=== PATIENT | male | born 1945 | race Caucasian/White ===

== ENCOUNTER 2018-04-17 10:05 | Inpatient (IN) | payer OTHER ==
[2018-04-17] MEDS ORDERED: ACETAMINOPHEN 1000 MG/100 ML VIAL (NON FORMULARY) IVPB ONE (10:57)
[2018-04-17] MEDS ORDERED: SODIUM CHLORIDE 1,000 ML IV STA ×2 (10:57→12:44)
[2018-04-17] MEDS ORDERED: ACETAMINOPHEN INJECTION 100 ML IVPB ONE (11:05)
--- NOTE | 2018-04-17 11:27 | PDOC ---
History of Present Illness - General Chief Complaint: Urinary Problem Stated Complaint: LT SIDE PAIN Time Seen by Provider: 04/17/18 10:33 History Source: Patient Exam Limitations: No Limitations - History of Present Illness Travel History: No Initial Comments: 04/17/18 11:04 72-year-old male presents to ED with complaints of chills since last night associated with lower abdominal pain and urinary frequency to the night. Patient states took nothing for the above and Afeditab CR when his testicular pain worsened and continued which chills. Patient denies diabetes, recent travel recent illness. Patient does see history of prostate stay with the placement years ago. Patient states is followed by urologist in [place] and Dr. Erwin for primary care. Patient denies abdominal distention, recent UTI , diarrhea, back pain, or nausea. Patient denies penile discharge or history of hydrocele/ varicele/hernia. Timing/Duration: reports: constant, getting worse Quality: reports: moderate, throbbing Abdominal Pain Onset Location: reports: suprapubic Pain Radiation: reports: other (left testicle) Activities at Onset: reports: none Aggravating Factors: improves with: Movement Alleviating Factors: improves with: None Past History - Travel Traveled outside of the country in the last 30 days: No - Past Medical History Allergies/Adverse Reactions: Allergies Allergy/AdvReac Type Severity Reaction Status Date / Time No Known Allergies Allergy Verified 04/17/18 10:10 Home Medications: Ambulatory Orders Esomeprazole Mag Trihydrate [Nexium] 40 mg PO DAILY 07/12/14 Lipase/Protease/Amylase [Miriam Dhillon 24,000 Units Capsule] 1 each PO TID 07/12/14 Rosuvastatin Calcium [Crestor] 5 mg PO DAILY 07/12/14 Solifenacin Succinate [Vesicare] 5 mg PO DAILY 07/12/14 metFORMIN HCL [Glucophage -] 500 mg PO DAILY 07/12/14 Metoprolol Succinate [Toprol XL -] 25 mg PO DAILY #30 tab.sr.24h 07/13/14 Amlodipine Besylate [Norvasc -] 10 mg PO DAILY 04/17/18 Aspirin [Ecotrin] 81 mg PO DAILY 04/17/18 Famotidine [Pepcid] 20 mg PO DAILY 04/17/18 Gas-X 1 tablet PO QID 04/17/18 Losartan Potassium [Cozaar] 100 mg PO DAILY 04/17/18 COPD: No Diabetes: Yes GI Disorders: Yes (GERD) HTN: Yes Hypercholesterolemia: Yes - Suicide/Smoking/Psychosocial Hx Smoking History: Never smoked Have you smoked in the past 12 months: No Hx Alcohol Use: No Substance Use Type: None Patient Lives Alone: Yes Lives with/in: lives alone Review of Systems - Review of Systems Able to Perform ROS?: No Constitutional: Yes: Chills, Malaise HEENTM: No: Symptoms Reported Respiratory: No: Symptoms reported : Yes: Frequency, Testicular Swelling, Testicular Pain Integumentary: No: Symptoms Reported Neurological: No: Symptoms reported Hematologic/Lymphatic: No: Symptoms Reported *Physical Exam - Vital Signs Last Vital Signs Temp Pulse Resp BP Pulse Ox 98.1 F 120 H 20 123/54 97 04/17/18 10:07 04/17/18 10:07 04/17/18 10:07 04/17/18 10:07 04/17/18 10:07 - Physical Exam General Appearance: Yes: Nourished, Appropriately Dressed. No: Apparent Distress HEENT: positive: EOMI, DIDIER, TMs Normal, Pharynx Normal. negative: Pale Conjunctivae Neck: positive: Supple Respiratory/Chest: positive: Lungs Clear, Normal Breath Sounds. negative: Respiratory Distress, Accessory Muscle Use Cardiovascular: positive: Regular Rhythm, Tachycardia. negative: Murmur Gastrointestinal/Abdominal: positive: Soft, Tenderness (Mild left suprapubic and left groin) Male Genitalia: positive: testicular tenderness (with edema to the left testicle. Noted erythema and increased warmth. tender epididymis). negative: other (no penile discharge) Musculoskeletal: negative: CVA Tenderness Extremity: positive: Normal Capillary Refill. negative: Pedal Edema Integumentary: positive: Normal Color, Warm, Moist Neurologic: positive: Motor Strength 5/5 (ambulatory) Heart Score/ECG Review - History History: Slightly suspicious - Electrocardiogram EKG: Normal - Age Age: >/= 65 - Risk Factors Based on the list above the patient has:: 1-2 risk factors - Troponin Troponin: </= normal limit - Score Heart Score - Total: 3 - ECG Intrepretation Rhythm: Regular Rhythm (rate 108. Sinus tachycardia with first-degree AV block) ED Treatment Course - LABORATORY CBC & Chemistry Diagram: 04/18/18 07:00 04/18/18 07:00 - RADIOLOGY Radiology Studies Ordered: Category Date Time Status CHEST X-RAY PORTABLE* [RAD] Stat Radiology 04/17/18 10:57 Ordered SCROTUM AND CONTENTS US [US] Stat Ultrasound 04/17/18 10:58 Ordered Medical Decision Making - Medical Decision Making 04/17/18 11:00 Patient here for evaluation of urinary frequency testicular pain, and chills. Patient on exam noted erythema and edema and tenderness to the left testicle. Patient is found to be tachycardic complaining of chills. Rectal temperature was performed with the results of 1.8. Patient ordered for septic workup testicular ultrasound secondary to history of prostate CA without removal and head CT plate smitten years ago. Patient is followed by Dr. Erwin for primary care and a nonaffiliated urologist. 04/17/18 11:36 Chest x-ray shows some increased marking in the left base which could represent some atelectasis versus infiltrative changes. Follow-up is recommended. 04/17/18 12:49 Laboratory Tests 04/17/18 04/17/18 04/17/18 11:16 11:16 11:16 WBC 25.7 H Hgb 13.7 Hct 41.2 Absolute Neuts (auto) 22.3 H Neutrophils % 86.6 H D Lymphocytes % 5.6 L D PT with INR 13.80 H INR 1.22 H VBG pH 7.40 POC VBG pCO2 35.6 L Sodium Potassium Chloride Carbon Dioxide Anion Gap BUN Creatinine Creat Clearance w eGFR Random Glucose Lactic Acid Calcium Total Bilirubin AST 04/17/18 04/17/18 11:16 11:16 WBC Hgb Hct Absolute Neuts (auto) Neutrophils % Lymphocytes % PT with INR INR VBG pH POC VBG pCO2 Sodium 137 Potassium 3.9 Chloride 104 Carbon Dioxide 20 L Anion Gap 13 BUN 20 H Creatinine 1.2 Creat Clearance w eGFR 59.35 Random Glucose 188 H D Lactic Acid 2.2 H* Calcium 9.8 Total Bilirubin 2.0 H AST 11 L D Patient ordered for Levaquin 750 mg IV along with second liter of normal saline. Ultrasound shows left testes and left epididymis with increased vascularity suggestive of inflammation and epididymoorchitis. Call placed to Dr. Erwin 04/17/18 13:25 Patient is to be admitted under Dr. Smith as per Dr. segura's request and will consult shortly. Awaiting repeat vitals and UA results. 04/17/18 13:56 Laboratory Tests 04/17/18 12:47 Urine Protein 2+ H Urine Glucose (UA) 2+ H Urine Ketones Trace H Urine Blood 1+ H Urine Nitrite Positive *DC/Admit/Observation/Transfer Diagnosis at time of Disposition: Epididymo-orchitis, acute, Sepsis - Discharge Dispostion Decision to Admit order: Yes - Referrals - Patient Instructions - Post Discharge Activity
[2018-04-17 11:35] LABS: VENOUS PC02 35.6 mmHg (38-52); VENOUS PH 7.4 (7.32-7.42); VENOUS PO2 30.9 mmHg (28-48)
[2018-04-17 11:41] LABS: BASO % 0.6 % (0-2.0); HEMATOCRIT 41.2 % (35.4-49); HEMOGLOBIN 13.7 GM/dL (11.7-16.9); LYMPH % 5.6 % (8-40); MCH 30.2 pg (25.7-33.7); MCHC 33.2 g/dl (32.0-35.9); MEAN CELL VOLUME 90.9 fl (80-96); MEAN PLT VOLUME 7.9 fl (7.5-11.1); MONO % 7.2 % (3.8-10.2); NEUT % 86.6 % (42.8-82.8); PLATELET COUNT 252 K/MM3 (134-434); RBC 4.53 M/mm3 (4.00-5.60); RDW 13.4 % (11.9-15.9); WHITE BLOOD COUNT 25.7 K/mm3 (4.0-10.0)
[2018-04-17 11:58] LABS: INR 1.22 (0.83-1.09); PROTHROMBIN TIME (PATIENT) 13.8 SEC (9.7-13.0)
[2018-04-17 12:01] LABS: ACTIVATED PTT 29.1 SECONDS (25.2-36.5)
[2018-04-17 12:21] LABS: ALBUMIN 3.5 g/dl (3.4-5.0); ANION GAP 13 MMOL/L (8-16); BLOOD UREA NITROGEN 20 mg/dL (7-18); CALCIUM 9.8 mg/dL (8.5-10.1); CHLORIDE 104 mmol/L (98-107); CO2 20 mmol/L (21-32); CREATININE 1.2 mg/dL (0.7-1.3); GLUCOSE,RANDOM 188 mg/dL (74-106); POTASSIUM 3.9 mmol/L (3.5-5.1); SGOT/AST 11 U/L (15-37); SGPT/ALT 14 U/L (12-78); SODIUM 137 mmol/L (136-145); TOT PROT 7.1 g/dl (6.4-8.2)
[2018-04-17 12:22] LABS: ALK PHOS 59 U/L (45-117)
[2018-04-17 13:50] LABS: URINE APPEARANCE SLCLOUDY; URINE BILIRUBIN NEGATIVE (<2.0 mg/dL); URINE COLOR YELLOW; URINE GLUCOSE (UA) 2+ (NEGATIVE); URINE KETONE TRACE (NEGATIVE); URINE LEUK ESTERASE NEGATIVE (NEGATIVE); URINE NITRITE POSITIVE (NEGATIVE); URINE UROBILINOGEN NEGATIVE mg/dL (0.2-1.0)
[2018-04-17 13:52] LABS: URINE PROTEIN 2+ (NEGATIVE)
[2018-04-17 13:59] LABS: EPI CELLS RARE /HPF (FEW); URINE BACTERIA RARE /hpf (NONE SEEN); URINE HYALINE CAST 1 /lpf; URINE MUCUS FEW
[2018-04-17 14:44] LABS: PLATELET ESTIMATE ADEQUATE
[2018-04-17 15:27] VITALS: BMI 31.0
[2018-04-17] MEDS ORDERED: PIPERACILLIN/TAZOB 3.375 GM 3.375 GM in DEXTROSE 5%-WATER - 50 ML IVPB SCH (18:15)
[2018-04-17] MEDS ORDERED: PIPERACILLIN/TAZOBACTAM 3.375 GM VIAL IVPB ONE (18:32)
[2018-04-17] MEDS ORDERED: DEXTROSE 5%-WATER - 50 ML IVPB ONE (18:32)
[2018-04-17] MEDS: amLODIPine BESYLATE 10 MG TABLET (FP) PO SCH (18:34)
[2018-04-17] MEDS: ASPIRIN COATED 81 MG TABLET.EC PO SCH (18:34)
[2018-04-17] MEDS: metoPROLOL SUCCINATE 25 MG TAB.SR.24H (FP) PO SCH (18:35)
[2018-04-17] MEDS: LOSARTAN POTASSIUM 50 MG TABLET (FP) PO SCH (18:35)
[2018-04-17] MEDS: metFORMIN HCL 500 MG TABLET (FP) PO SCH (18:35)
[2018-04-17] MEDS: RANITIDINE HCL 150 MG TABLET (FP) PO SCH (18:35)
[2018-04-17] MEDS: SOLIFENACIN SUCCINATE 5 MG TAB (FP) PO SCH (18:35)
[2018-04-17] MEDS: PANTOPRAZOLE 40 MG TABLET (FP) PO SCH (18:35)
[2018-04-17] MEDS: PIPERACILLIN/TAZOB 3.375 GM 3.375 GM in DEXTROSE 5%-WATER - 50 ML IVPB SCH (18:36)
[2018-04-17] MEDS: LIPASE/PROTEASE/AMYLASE 6,000 UNIT CAPSULE PO SCH (18:36)
[2018-04-17] MEDS: ROSUVASTATIN CA 10 MG TABLET (FP) PO SCH (21:05)
[2018-04-17] MEDS ORDERED: oxyCODONE HCL 5 MG TABLET PO PRN (23:41)
[2018-04-17] MEDS ORDERED: ACETAMINOPHEN 325 MG TABLET (FP) PO PRN (23:42)
[2018-04-18] MEDS ORDERED: DEXTROSE 5%-WATER - 50 ML IVPB ONE ×3 (01:25→17:06)
[2018-04-18] MEDS ORDERED: PIPERACILLIN/TAZOBACTAM 3.375 GM VIAL IVPB ONE ×3 (01:25→17:06)
[2018-04-18] MEDS ORDERED: PT OWN MED DRAWER 7, Y5N ONE (01:29)
[2018-04-18] MEDS: PIPERACILLIN/TAZOB 3.375 GM 3.375 GM in DEXTROSE 5%-WATER - 50 ML IVPB SCH ×3 (01:44→17:11)
[2018-04-18] MEDS: metFORMIN HCL 500 MG TABLET (FP) PO SCH (06:25)
[2018-04-18 08:16] LABS: ALBUMIN 2.9 g/dl (3.4-5.0); ALK PHOS 56 U/L (45-117); ANION GAP 11 MMOL/L (8-16); BILIRUBIN,TOTAL 1.3 mg/dL (0.2-1.0); BLOOD UREA NITROGEN 18 mg/dL (7-18); CALCIUM 9.5 mg/dL (8.5-10.1); CHLORIDE 110 mmol/L (98-107); CO2 21 mmol/L (21-32); CREATININE 0.9 mg/dL (0.7-1.3); GLUCOSE,RANDOM 138 mg/dL (74-106); HEMATOCRIT 36.7 % (35.4-49); HEMOGLOBIN 12.2 GM/dL (11.7-16.9); MCH 30.2 pg (25.7-33.7); MCHC 33.1 g/dl (32.0-35.9); MEAN CELL VOLUME 91.4 fl (80-96); PLATELET COUNT 220 K/MM3 (134-434); POTASSIUM 4.2 mmol/L (3.5-5.1); RBC 4.02 M/mm3 (4.00-5.60); RDW 13.6 % (11.9-15.9); SGOT/AST 13 U/L (15-37); SGPT/ALT 12 U/L (12-78); SODIUM 142 mmol/L (136-145); TOT PROT 6.3 g/dl (6.4-8.2); WHITE BLOOD COUNT 19.8 K/mm3 (4.0-10.0)
[2018-04-18] MEDS: LIPASE/PROTEASE/AMYLASE 6,000 UNIT CAPSULE PO SCH ×3 (08:26→17:11)
[2018-04-18] MEDS: metoPROLOL SUCCINATE 25 MG TAB.SR.24H (FP) PO SCH (09:15)
[2018-04-18] MEDS: RANITIDINE HCL 150 MG TABLET (FP) PO SCH (09:15)
[2018-04-18] MEDS: amLODIPine BESYLATE 10 MG TABLET (FP) PO SCH (09:15)
[2018-04-18] MEDS: ASPIRIN COATED 81 MG TABLET.EC PO SCH (09:15)
[2018-04-18] MEDS: LOSARTAN POTASSIUM 50 MG TABLET (FP) PO SCH (09:15)
[2018-04-18] MEDS: PANTOPRAZOLE 40 MG TABLET (FP) PO SCH (09:15)
[2018-04-18] MEDS: SOLIFENACIN SUCCINATE 5 MG TAB (FP) PO SCH (09:16)
[2018-04-18] MEDS: INSULIN SLIDING SCALE (NOVOLOG) 1 VIAL SQ SCH ×2 (11:05→16:33)
--- NOTE | 2018-04-18 12:06 | HP ---
Admitting History and Physical - Primary Care Physician PCP: Scott Erwin - Admission Chief Complaint: Left Scrotal Pain History of Present Illness: 72 yrs old pleasant man not sexually active H/O HTN, T2DM, Dyslipedemia, CA Prostate s/p Radio Active seeds implant in 2006 regular F/U PSA undetectable , urinary urgency, present to Ed with c/o Left scrotal pain sharp, dragging goes to Left Inguinal area along spermatic cord with some urinary frequency, mailaise and low grade fever, aggravates with standing up and walking tender to touch, came to Ed fpr evaluation, in the Ed spiked fever, UA + for WBC LE and Nitrite, elevated Lactic acid and TWBC received IV abx, patient feels improved still c/o Left scrotal and tenticular pain, able to tolerate PO denies any chest pain, SOB, urinary retention, ET unlimited, patient is not sexually active. History Source: Patient - Past Medical History Cardiovascular: Yes: HTN, Hyperlipdemia Gastrointestinal: Yes: GERD Hepatobiliary: Yes: Cholelithiasis Heme/Onc: Yes: Other (Ca Prosatate) Endocrine: Yes: Diabetes Mellitus - Past Surgical History Past Surgical History: Yes: Cholecystectomy, Colonoscopy Additional Past Surgical History: Prostates Seeds - Smoking History Smoking history: Never smoked Have you smoked in the past 12 months: No - Alcohol/Substance Use Hx Alcohol Use: No - Social History Usual Living Arrangement: Yes: With Child ADL: Independent Home Medications - Allergies Allergies/Adverse Reactions: Allergies Allergy/AdvReac Type Severity Reaction Status Date / Time No Known Allergies Allergy Verified 04/17/18 10:10 - Home Medications Home Medications: Ambulatory Orders Esomeprazole Mag Trihydrate [Nexium] 40 mg PO DAILY 07/12/14 Lipase/Protease/Amylase [Miriam Dhillon 24,000 Units Capsule] 1 each PO TID 07/12/14 Rosuvastatin Calcium [Crestor] 5 mg PO DAILY 07/12/14 Solifenacin Succinate [Vesicare] 5 mg PO DAILY 07/12/14 metFORMIN HCL [Glucophage -] 500 mg PO DAILY 07/12/14 Metoprolol Succinate [Toprol XL -] 25 mg PO DAILY #30 tab.sr.24h 07/13/14 Amlodipine Besylate [Norvasc -] 10 mg PO DAILY 04/17/18 Aspirin [Ecotrin] 81 mg PO DAILY 04/17/18 Famotidine [Pepcid] 20 mg PO DAILY 04/17/18 Gas-X 1 tablet PO QID 04/17/18 Losartan Potassium [Cozaar] 100 mg PO DAILY 04/17/18 Family Disease History - Family Disease History Family Disease History: Heart Disease: Father (CAD), CA: Mother (Colon) Review of Systems - Review of Systems Constitutional: reports: Chills, Diaphoresis, Fever, Lethargy Eyes: denies: Blind Spots, Blurred Vision HENT: denies: Difficult Swallowing, Ear Discharge Neck: denies: Decreased ROM, Lumps, Pain on Movement, Stiffness Cardiovascular: denies: Chest Pain, Edema, Palpitations, Shortness of Breath Respiratory: denies: Cough, Exercise Intolerance, Hemoptysis Gastrointestinal: denies: Abdominal Pain, Bloating, Constipation Genitourinary: reports: Frequency, Testicular Pain, Testicular Swelling. denies : Dysuria, Flank Pain Breasts: reports: No Symptoms Reported, See HPI Musculoskeletal: denies: Back Pain, Crepitus, Decreased ROM Integumentary: denies: Blister, Bruising Neurological: denies: Change in LOC, Change in Speech Endocrine: denies: Excessive Sweating, Flushing, Increased Hunger Hematology/Lymphatic: denies: Easily Bruised, Excessive Bleeding Psychiatric: denies: Altered Sleep Pattern, Anxiety, Depression Pain Intensity: 6 Physical Examination Vital Signs: Vital Signs Temperature 97.8 F 04/18/18 10:00 Pulse Rate 94 H 04/18/18 10:00 Respiratory Rate 18 04/18/18 10:00 Blood Pressure 141/76 04/18/18 10:00 O2 Sat by Pulse Oximetry (%) 95 04/18/18 09:00 Elderly man not in distress c/o Left Scrotal Pain HEENT: mm moist, no anemia, PERRLA EOMI NECK; Supple, no JVD No Bruit CHEST: CTA B/L CVS; S1S2 R no m/g/r ABD: No distention, Tenderness along Left Inguinal ligament along the course of spermatic cord EXT: No edema feet, no calf tenderness, Pulses +2 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 Labs: CBC, BMP 04/18/18 07:00 04/18/18 07:00 Imaging - Results Chest X-ray: Report Reviewed (No acute changes) Ultrasound: Report Reviewed (Scrotal: Left Epidymoorchitis) EKG: Report Reviewed (HR 108, NSR MO 210, QTC [address] [place]) Problem List - Problems (1) Epididymo-orchitis, acute Assessment/Plan: Acute with elevated Lactic acid fever and TWBC no sexually active will cont IV Zosyn , ID and consult, Scrotal support pain control. Code(s): N45.3 - EPIDIDYMO-ORCHITIS (2) Sepsis Assessment/Plan: Elevated TWBC with Lactic acid and Epididymo Orchitis tachycardia fever IV Hydration, blood and urine culture F/U clinically. Code(s): A41.9 - SEPSIS, UNSPECIFIED ORGANISM (3) Hypertension Assessment/Plan: Well controlled cont all home meds Code(s): I10 - ESSENTIAL (PRIMARY) HYPERTENSION (4) T2DM (type 2 diabetes mellitus) Assessment/Plan: Hold Metformin , F/U Accucheck and correction dose insulin Ac Code(s): E11.9 - TYPE 2 DIABETES MELLITUS WITHOUT COMPLICATIONS (5) CA of prostate Assessment/Plan: S/P Seeds in 2006 at present no active issue Code(s): C61 - MALIGNANT NEOPLASM OF PROSTATE
--- NOTE | 2018-04-18 13:28 | EKG ---
Test Reason : Blood Pressure : / mmHG Vent. Rate : 108 BPM Atrial Rate : 108 BPM P-R Int : 210 ms QRS Dur : 096 ms QT Int : 320 ms P-R-T Axes : 019 -12 053 degrees QTc Int : 428 ms SINUS TACHYCARDIA WITH 1ST DEGREE A-V BLOCK OTHERWISE NORMAL ECG WHEN COMPARED WITH ECG OF 13-JUL-2014 08:55, NO SIGNIFICANT CHANGE WAS FOUND Confirmed by HORTENCIA GAMBINO MD ([id number]) on 04/18/2018 1:27:43 PM Referred By: Confirmed By:HORTENCIA GAMBINO MD
--- NOTE | 2018-04-18 14:07 | PN ---
Progress Note (short form) - Note Progress Note: ID consult dictated imp/reccd 72 year old man PMH prostate cancer s/p seed implant 2006, developed left scrotal pain on , worsened with left testicular swelling on Wednesday night he had chills and urinated at least 10 times no dysuria +frequency _nausea, no vomiting no bm since Wednesday recent UTI 6 weeks ago- treated at [facility] in [facility] doesny recall name of antibiotic prescribed not sexually active Left epididymitis/orchitis/UTI continue Zosyn given recent antibiotic use f/u cultures urology to evaluate Problem List - Problems (1) Epididymo-orchitis, acute Code(s): N45.3 - EPIDIDYMO-ORCHITIS (2) UTI (urinary tract infection) Code(s): N39.0 - URINARY TRACT INFECTION, SITE NOT SPECIFIED
--- NOTE | 2018-04-18 15:02 | CONS ---
DATE OF CONSULTATION: 04/18/2018 REQUESTED BY: Essence Delgadillo MD This is a 72-year-old man, past medical history of prostate cancer. He was treated with seed implants in 2006 and has done well since that time. He presents with pain on the left side of his scrotum that started some time . Wednesday it worsened, he developed testicular swelling. No dysuria. Wednesday night, he started having chills. He urinated and had markedly increased urinary output. He had to get up 10 to 11 times overnight to use the bathroom. He had no burning on urination. He did have nausea but no vomiting. He also noted chills. He presented with these complaints, was found to have a temperature of 101.4, an elevated white count, and left testicular swelling that was confirmed by ultrasound. He has acute epididymo-orchitis. I am asked to see him for further evaluation. He was started on piperacillin tazobactam and given a dose of Levaquin. Of note, he was recently treated in an urgi-center in [facility] 6 weeks ago and he had classic signs of dysuria and frequency and was diagnosed with a UTI. He was given Pyridium and an oral antibiotic, which he took. He unfortunately does not recall what he took. Prior to that, his last UTI was 2 years ago. His past medical history is notable for a history of hypertension, hyperlipidemia, GERD, cholelithiasis, prostate cancer, and diabetes. Surgical history is notable for cholecystectomy. SOCIAL HISTORY: He stopped smoking 30 years ago. There is no history of any substance use. He lives in a separate apartment in the same building as his sister. He is not . He is not sexually active. 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 He has no known drug allergies. His medications as an outpatient include Nexium, Creon, Crestor, Vesicare, Glucophage, Toprol XL, Norvasc, Ecotrin, Pepcid, and losartan. Family history is notable for heart disease in his father and colon cancer in his mother. REVIEW OF SYSTEMS: As per HPI. He has no cough. He does note constipation. He has not had a bowel movement since Wednesday. He has not had any vomiting or chest pain. PHYSICAL EXAMINATION: General: He is awake and alert, a pleasant man, in no acute distress. Vital Signs: He is afebrile, temperature is 97.8, T-max is 101.3. Pulse 94. Blood pressure 141/76. Respiratory rate 18. He is saturating 95%. HEENT: Normocephalic. His eyes are anicteric. Neck: Supple. Lungs: Clear to auscultation. Heart: Regular rate and rhythm. Abdomen: Soft, nontender. He has a very swollen, erythematous, tender left testicle, tender and painful to touch, with induration. There is no fluctuance. Extremities: Without edema. White count yesterday was 25.7, today is 19.8. Hemoglobin 12.2, platelets 220. INR is 1.2. BUN 18, creatinine 0.9. Urinalysis has 14 white cells, urine culture growing gram-negative romy, and blood cultures are negative at this time. Scrotal ultrasound is as previously stated, shows acute left epididymo-orchitis. He has increased vascularity of the left testicle, and epididymitis. In summary, this is a 72-year-old man with left epididymitis, orchitis, and a urinary tract infection. I would continue Zosyn, given his recent antibiotic usage. He has some risk factors for resistance. Would follow up his cultures and would suggest he be seen by Urology. Further recommendations to follow. ROBE SOUTH M.D. [id number]
[2018-04-18] MEDS: ROSUVASTATIN CA 10 MG TABLET (FP) PO SCH (21:24)
[2018-04-19] MEDS ORDERED: PIPERACILLIN/TAZOBACTAM 3.375 GM VIAL IVPB ONE ×3 (00:46→16:45)
[2018-04-19] MEDS ORDERED: DEXTROSE 5%-WATER - 50 ML IVPB ONE ×3 (00:47→16:45)
[2018-04-19] MEDS: PIPERACILLIN/TAZOB 3.375 GM 3.375 GM in DEXTROSE 5%-WATER - 50 ML IVPB SCH ×3 (02:33→17:00)
[2018-04-19] MEDS: INSULIN SLIDING SCALE (NOVOLOG) 1 VIAL SQ SCH ×3 (06:15→16:54)
[2018-04-19 08:00] LABS: BASO % 0.8 % (0-2.0); EOS % 1.4 % (0-4.5); HEMATOCRIT 38.1 % (35.4-49); HEMOGLOBIN 12.7 GM/dL (11.7-16.9); LYMPH % 14.9 % (8-40); MCH 30.2 pg (25.7-33.7); MCHC 33.4 g/dl (32.0-35.9); MEAN CELL VOLUME 90.7 fl (80-96); MEAN PLT VOLUME 8.1 fl (7.5-11.1); MONO % 9.2 % (3.8-10.2); NEUT % 73.7 % (42.8-82.8); PLATELET COUNT 236 K/MM3 (134-434); RDW 13.4 % (11.9-15.9)
[2018-04-19] MEDS: LIPASE/PROTEASE/AMYLASE 6,000 UNIT CAPSULE PO SCH ×3 (08:28→16:54)
[2018-04-19 08:52] LABS: CALCIUM 8.9 mg/dL (8.5-10.1); CHLORIDE 105 mmol/L (98-107); POTASSIUM 3.8 mmol/L (3.5-5.1); SODIUM 139 mmol/L (136-145)
[2018-04-19 08:58] LABS: ALBUMIN 2.8 g/dl (3.4-5.0); ALK PHOS 60 U/L (45-117); ANION GAP 12 MMOL/L (8-16); BILIRUBIN,TOTAL 1.1 mg/dL (0.2-1.0); BLOOD UREA NITROGEN 15 mg/dL (7-18); CO2 22 mmol/L (21-32); GLUCOSE,RANDOM 121 mg/dL (74-106); SGOT/AST 15 U/L (15-37); SGPT/ALT 14 U/L (12-78); TOT PROT 6.5 g/dl (6.4-8.2)
[2018-04-19] MEDS: RANITIDINE HCL 150 MG TABLET (FP) PO SCH (09:09)
[2018-04-19] MEDS: PANTOPRAZOLE 40 MG TABLET (FP) PO SCH (09:09)
[2018-04-19] MEDS: SOLIFENACIN SUCCINATE 5 MG TAB (FP) PO SCH (09:09)
[2018-04-19] MEDS: ASPIRIN COATED 81 MG TABLET.EC PO SCH (09:09)
[2018-04-19] MEDS: amLODIPine BESYLATE 10 MG TABLET (FP) PO SCH (09:09)
[2018-04-19] MEDS: metoPROLOL SUCCINATE 25 MG TAB.SR.24H (FP) PO SCH (09:09)
[2018-04-19] MEDS: LOSARTAN POTASSIUM 50 MG TABLET (FP) PO SCH (09:09)
--- NOTE | 2018-04-19 12:15 | PN ---
Progress Note, Physician Chief Complaint: Mr Cunha says he is feeling better today. Still with pain in his scrotum but improved. No cp, sob, n/v. - Current Medication List Current Medications: Active Medications Acetaminophen (Tylenol -) 325 mg PO Q4H PRN PRN Reason: PAIN LEVEL 4-10 Last Admin: 04/17/18 23:46 Dose: 325 mg Amlodipine Besylate (Norvasc -) 10 mg PO DAILY [facility] Last Admin: 04/19/18 09:09 Dose: 10 mg Aspirin (Ecotrin -) 81 mg PO DAILY [facility] Last Admin: 04/19/18 09:09 Dose: 81 mg Piperacillin Sod/Tazobactam (Sod 3.375 gm/ Dextrose) 50 mls @ 100 mls/hr IVPB Q8H-IV [facility]; Protocol Last Admin: 04/19/18 09:12 Dose: 100 mls/hr Insulin Aspart (Novolog Vial Sliding Scale -) 1 vial SQ TIDAC [facility]; Protocol Last Admin: 04/19/18 11:02 Dose: Not Given Losartan Potassium (Cozaar -) 100 mg PO DAILY [facility] Last Admin: 04/19/18 09:09 Dose: 100 mg Metoprolol Succinate (Toprol Xl -) 25 mg PO DAILY [facility] Last Admin: 04/19/18 09:09 Dose: 25 mg Oxycodone HCl (Roxicodone -) 5 mg PO Q4H PRN PRN Reason: PAIN LEVEL 4-10 Last Admin: 04/17/18 23:47 Dose: 5 mg Pancrelipase (Creon Dr 6,000 Units Capsule) 4 cap PO TIDCM [facility] Last Admin: 04/19/18 11:38 Dose: 4 cap Pantoprazole Sodium (Protonix -) 40 mg PO DAILY [facility] Last Admin: 04/19/18 09:09 Dose: 40 mg Ranitidine HCl (Zantac -) 150 mg PO DAILY [facility] Last Admin: 04/19/18 09:09 Dose: 150 mg Rosuvastatin Calcium (Crestor -) 5 mg PO HS [facility] Last Admin: 04/18/18 21:24 Dose: 5 mg Solifenacin (Vesicare -) 5 mg PO DAILY [facility] Last Admin: 04/19/18 09:09 Dose: 5 mg - Objective Vital Signs: Vital Signs Temperature 36.7 C 09/04/18 10:23 Pulse Rate 103 H 04/19/18 10:23 Respiratory Rate 20 04/19/18 10:23 Blood Pressure 149/90 04/19/18 10:23 O2 Sat by Pulse Oximetry (%) 96 04/19/18 10:23 Constitutional: Yes: Well Nourished, No Distress, Calm Cardiovascular: Yes: Regular Rate and Rhythm. No: Gallop, Murmur, Rub Respiratory: Yes: Regular, CTA Bilaterally. No: Rales, Rhonchi, Wheezes Gastrointestinal: Yes: Normal Bowel Sounds, Soft. No: Distention, Tenderness Extremities: Yes: WNL Edema: No Labs: CBC, BMP 04/19/18 06:30 04/19/18 06:30 INR, PTT INR 1.22 (0.83-1.09) H 04/17/18 11:16 Problem List - Problems (1) Epididymo-orchitis, acute Assessment/Plan: -appreciate urology and ID assistance -case d/w urology -elevation of scrotum -ambulation -continue IV antibiotics currently Code(s): N45.3 - EPIDIDYMO-ORCHITIS (2) Sepsis Assessment/Plan: -secondary to UTI/orchitis -improving with antibiotics -present on admission Code(s): A41.9 - SEPSIS, UNSPECIFIED ORGANISM (3) UTI (urinary tract infection) Assessment/Plan: -growing pansensitive e coli -ID following -on zosyn -defer to ID when to de-escalate and change to oral antibiotics but suspect needs IV still considering leukocytosis Code(s): N39.0 - URINARY TRACT INFECTION, SITE NOT SPECIFIED (4) T2DM (type 2 diabetes mellitus) Assessment/Plan: -diabetic diet -FSBS and SSI Code(s): E11.9 - TYPE 2 DIABETES MELLITUS WITHOUT COMPLICATIONS (5) Hypertension Assessment/Plan: -continue norvasc, toprol xl, and norvasc -controlled Code(s): I10 - ESSENTIAL (PRIMARY) HYPERTENSION
--- NOTE | 2018-04-19 12:33 | CONSULT ---
Consult - text type - Consultation Consultation Note: 72 yo male w > one week left hemiscrotal pain swelling prior to presenting to the ER pain improving on IV abx instructed pt on scrotal elevation cont abx likely d/c in 48 hrs on po abx Will follow
--- NOTE | 2018-04-19 17:49 | PN ---
Progress Note (short form) - Note Progress Note: improved no fevers less pain Vital Signs Period Temp Pulse Resp BP Sys/Mcdermott Pulse Ox Last 24 Hr 98.0 F-99.2 F 81-103 16-20 114-149/68-90 95-96 CBC, BMP 04/19/18 06:30 04/19/18 06:30 Microbiology 04/17/18 11:16 Urine - Urine Clean Catch Urine Culture - Final Escherichia Coli 04/17/18 11:16 Blood - Peripheral Venous Blood Culture - Preliminary NO GROWTH OBTAINED AFTER 48 HOURS, INCUBATION TO CONTINUE FOR 3 DAYS. 04/17/18 11:16 Blood - Peripheral Venous Blood Culture - Preliminary NO GROWTH OBTAINED AFTER 48 HOURS, INCUBATION TO CONTINUE FOR 3 DAYS. Current Medications Acetaminophen (Tylenol -) 325 mg PO Q4H PRN PRN Reason: PAIN LEVEL 4-10 Last Admin: 04/17/18 23:46 Dose: 325 mg Amlodipine Besylate (Norvasc -) 10 mg PO DAILY [facility] Last Admin: 04/19/18 09:09 Dose: 10 mg Aspirin (Ecotrin -) 81 mg PO DAILY [facility] Last Admin: 04/19/18 09:09 Dose: 81 mg Piperacillin Sod/Tazobactam (Sod 3.375 gm/ Dextrose) 50 mls @ 100 mls/hr IVPB Q8H-IV [facility]; Protocol Last Admin: 04/19/18 17:00 Dose: 100 mls/hr Insulin Aspart (Novolog Vial Sliding Scale -) 1 vial SQ TIDAC [facility]; Protocol Last Admin: 04/19/18 16:54 Dose: 2 units Losartan Potassium (Cozaar -) 100 mg PO DAILY [facility] Last Admin: 04/19/18 09:09 Dose: 100 mg Metoprolol Succinate (Toprol Xl -) 25 mg PO DAILY [facility] Last Admin: 04/19/18 09:09 Dose: 25 mg Oxycodone HCl (Roxicodone -) 5 mg PO Q4H PRN PRN Reason: PAIN LEVEL 4-10 Last Admin: 04/17/18 23:47 Dose: 5 mg Pancrelipase (Creon Dr 6,000 Units Capsule) 4 cap PO TIDCM [facility] Last Admin: 04/19/18 16:54 Dose: 4 cap Pantoprazole Sodium (Protonix -) 40 mg PO DAILY [facility] Last Admin: 04/19/18 09:09 Dose: 40 mg Ranitidine HCl (Zantac -) 150 mg PO DAILY [facility] Last Admin: 04/19/18 09:09 Dose: 150 mg Rosuvastatin Calcium (Crestor -) 5 mg PO HS [facility] Last Admin: 04/18/18 21:24 Dose: 5 mg Solifenacin (Vesicare -) 5 mg PO DAILY [facility] Last Admin: 04/19/18 09:09 Dose: 5 mg a/p Left epididymitis/orchitis/UTI-improving hawkins sensitive ecoli can switch to levaquin 500 mg daily to treat total 10 days please call back if needed Problem List - Problems (1) Epididymo-orchitis, acute Code(s): N45.3 - EPIDIDYMO-ORCHITIS (2) UTI (urinary tract infection) Code(s): N39.0 - URINARY TRACT INFECTION, SITE NOT SPECIFIED
[2018-04-19] MEDS: ROSUVASTATIN CA 10 MG TABLET (FP) PO SCH (21:13)
[2018-04-20] MEDS ORDERED: DEXTROSE 5%-WATER - 50 ML IVPB ONE ×2 (00:48→08:54)
[2018-04-20] MEDS ORDERED: PIPERACILLIN/TAZOBACTAM 3.375 GM VIAL IVPB ONE ×2 (00:48→08:54)
[2018-04-20] MEDS: PIPERACILLIN/TAZOB 3.375 GM 3.375 GM in DEXTROSE 5%-WATER - 50 ML IVPB SCH ×2 (01:04→09:18)
[2018-04-20] MEDS: INSULIN SLIDING SCALE (NOVOLOG) 1 VIAL SQ SCH ×2 (06:22→11:25)
[2018-04-20 08:37] LABS: EOS % 1.9 % (0-4.5); HEMATOCRIT 39.2 % (35.4-49); HEMOGLOBIN 13.2 GM/dL (11.7-16.9); LYMPH % 18.8 % (8-40); MCH 30.2 pg (25.7-33.7); MCHC 33.6 g/dl (32.0-35.9); MEAN CELL VOLUME 89.9 fl (80-96); MEAN PLT VOLUME 7.4 fl (7.5-11.1); MONO % 11.6 % (3.8-10.2); NEUT % 66.7 % (42.8-82.8); PLATELET COUNT 285 K/MM3 (134-434); RBC 4.36 M/mm3 (4.00-5.60); RDW 13.4 % (11.9-15.9); WHITE BLOOD COUNT 9.9 K/mm3 (4.0-10.0)
[2018-04-20] MEDS: LIPASE/PROTEASE/AMYLASE 6,000 UNIT CAPSULE PO SCH ×2 (08:44→11:44)
[2018-04-20 09:00] LABS: ANION GAP 9 MMOL/L (8-16); BLOOD UREA NITROGEN 14 mg/dL (7-18); CALCIUM 9.2 mg/dL (8.5-10.1); CHLORIDE 104 mmol/L (98-107); CO2 24 mmol/L (21-32); GLUCOSE,RANDOM 130 mg/dL (74-106); MAGNESIUM 1.6 mg/dL (1.8-2.4); POTASSIUM 3.6 mmol/L (3.5-5.1); SODIUM 137 mmol/L (136-145)
[2018-04-20] MEDS: metoPROLOL SUCCINATE 25 MG TAB.SR.24H (FP) PO SCH (09:18)
[2018-04-20] MEDS: ASPIRIN COATED 81 MG TABLET.EC PO SCH (09:18)
[2018-04-20] MEDS: RANITIDINE HCL 150 MG TABLET (FP) PO SCH (09:18)
[2018-04-20] MEDS: LOSARTAN POTASSIUM 50 MG TABLET (FP) PO SCH (09:18)
[2018-04-20] MEDS: PANTOPRAZOLE 40 MG TABLET (FP) PO SCH (09:18)
[2018-04-20] MEDS: SOLIFENACIN SUCCINATE 5 MG TAB (FP) PO SCH (09:18)
[2018-04-20] MEDS: amLODIPine BESYLATE 10 MG TABLET (FP) PO SCH (09:18)
[2018-04-20 10:27] VITALS: BP 137/86; PULSE 97; TEMP 97.9
--- NOTE | 2018-04-20 12:16 | DS ---
Physical Examination Vital Signs: Vital Signs Temperature 36.6 C 04/20/18 10:00 Pulse Rate 97 H 04/20/18 10:00 Respiratory Rate 20 04/20/18 10:00 Blood Pressure 137/86 04/20/18 10:00 O2 Sat by Pulse Oximetry (%) 96 04/20/18 10:00 Constitutional: Yes: Well Nourished, No Distress, Calm Cardiovascular: Yes: Regular Rate and Rhythm. No: Gallop, Murmur, Rub Respiratory: Yes: Regular, CTA Bilaterally. No: Rales, Rhonchi, Wheezes Gastrointestinal: Yes: Normal Bowel Sounds, Soft. No: Distention, Tenderness Extremities: Yes: WNL Edema: No Labs: CBC, BMP 04/20/18 07:45 04/20/18 07:45 Discharge Summary Reason For Visit: SEPSIS Current Active Problems CA of prostate (Acute) Epididymo-orchitis, acute (Acute) Sepsis (Acute) T2DM (type 2 diabetes mellitus) (Acute) UTI (urinary tract infection) (Acute) Hospital Course: (1) Epididymo-orchitis, acute Code(s): N45.3 - EPIDIDYMO-ORCHITIS (2) Sepsis Code(s): A41.9 - SEPSIS, UNSPECIFIED ORGANISM (3) UTI (urinary tract infection) Code(s): N39.0 - URINARY TRACT INFECTION, SITE NOT SPECIFIED (4) T2DM (type 2 diabetes mellitus) Code(s): E11.9 - TYPE 2 DIABETES MELLITUS WITHOUT COMPLICATIONS (5) Hypertension Code(s): I10 - ESSENTIAL (PRIMARY) HYPERTENSION Mr Cunha is a very pleasant 72 year old male who came in with sepsis secondary to orchitis and UTI. He was admitted to the hospital and seen by urology and ID. He was started on zosyn and cultures were sent. Urine culture came back positive for a pansensitive e coli. Case was discussed with ID and he is safe to transition to levaquin for a total of 10 days. He is safe for discharge home. 31 minutes spent in preparation of this discharge Condition: Good - Instructions Diet, Activity, Other Instructions: resume previous diet and activity Referrals: Scott Erwin MD [Primary Care Provider] - Roc Dean MD [Staff Physician] - Ambreen Monroe MD [Staff Physician] - Disposition: HOME - Home Medications Comprehensive Discharge Medication List: Ambulatory Orders Esomeprazole Mag Trihydrate [Nexium] 40 mg PO DAILY 07/12/14 Lipase/Protease/Amylase [Miriam Dhillon 24,000 Units Capsule] 1 each PO TID 07/12/14 Rosuvastatin Calcium [Crestor] 5 mg PO DAILY 07/12/14 Solifenacin Succinate [Vesicare] 5 mg PO DAILY 07/12/14 metFORMIN HCL [Glucophage -] 500 mg PO DAILY 07/12/14 Metoprolol Succinate [Toprol XL -] 25 mg PO DAILY #30 tab.sr.24h 07/13/14 Amlodipine Besylate [Norvasc -] 10 mg PO DAILY 04/17/18 Aspirin [Ecotrin] 81 mg PO DAILY 04/17/18 Famotidine [Pepcid] 20 mg PO DAILY 04/17/18 Gas-X 1 tablet PO QID 04/17/18 Losartan Potassium [Cozaar] 100 mg PO DAILY 04/17/18 Levofloxacin [Levaquin] 500 mg PO DAILY #8 tablet 04/20/18 oxyCODONE HCL [Roxicodone -] 5 mg PO Q6H PRN #20 tablet MDD 20mg 04/20/18
== END 2018-04-20 14:21 | disposition home or self-care (01) | DRG 872 ==
LOC: JER 10:05 → JERBED 13:27 → J6S 15:10
PROVIDERS: ADMIT Internal Medicine; ATTEND Internal Medicine
DX: A41.9 Sepsis, unspecified organism (principal); N39.0 Urinary tract infection, site not specified; N45.3 Epididymo-orchitis; E11.9 Type 2 diabetes mellitus without complications; I10 Essential (primary) hypertension
CPT/HCPCS: 36415; 71045-TC-FY; 76870-TC; 80048; 80053; 81003; 81015; 82803; 82962; 83605; 83735; 84100; 84484; 85025; 85027; 85610; 85730; 87040; 87086; 87186; 93005; 93010; 99284-25; J0131; J7030

== ENCOUNTER 2019-10-31 11:02 | Inpatient (IN) | payer OTHER ==
--- NOTE | 2019-10-31 11:14 | PDOC ---
Rapid Medical Evaluation Chief Complaint: Shortness of Breath Time Seen by Provider: 10/31/19 11:08 Medical Evaluation: Allergies Allergy/AdvReac Type Severity Reaction Status Date / Time diazepam [From Valium] Allergy Verified 10/31/19 11:05 Vital Signs Temp Pulse Resp BP Pulse Ox 97.9 F 113 H 20 161/87 95 10/31/19 11:05 10/31/19 11:05 10/31/19 11:05 10/31/19 11:05 10/31/19 11:05 10/31/19 11:08 CC: cough and CHURCH x2 days; denies fevers; PMHx DM PE: AF. HR-116. 161/87. OP- WNL. Lungs CTAB. Occasional missed beats. Orders: cardiac w/u with Covid testing Patient to proceed to ED for further evaluation. 10/31/19 11:14 Discharge Disposition - Diagnosis SOB (shortness of breath) - Referrals - Patient Instructions - Post Discharge Activity
--- NOTE | 2019-10-31 11:31 | PDOC ---
History of Present Illness - General Chief Complaint: Shortness of Breath Stated Complaint: SOB Time Seen by Provider: 10/31/19 11:08 History Source: Patient Exam Limitations: No Limitations - History of Present Illness Initial Comments: 10/31/19 11:29 74M with a PMH of HTN, T2DM, Dyslipedemia, CA Prostate s/p Radio Active seeds implant in 2006, Fe deficiency anemia, who states that he bent over to get some water from the sink and he immediately felt short of breath and was breathing heavily. After 10 minutes of sitting down at rest, the SOB subsided. On Wednesday, he took the garbage cans out and felt short of breath again which then subsided after sitting down. No orthopnea. Slept in a chair Wednesday night to be more comfortable but slept flat last night and had a good nights sleep. He felt short of breath as he was walking to the room in the ER. Denies CP, lightheadedness, palpitations, fever, chills, nausea, vomiting, diaphoresis, numbness, tingling, or weakness. He has experienced this by walking up a flight of stairs. Past History - Past Medical History Allergies/Adverse Reactions: Allergies Allergy/AdvReac Type Severity Reaction Status Date / Time diazepam [From Valium] Allergy Verified 10/31/19 11:05 Home Medications: Ambulatory Orders Esomeprazole Mag Trihydrate [Nexium] 40 mg PO DAILY 07/12/14 Lipase/Protease/Amylase [Creon Dr 24,000 Units Capsule] 1 each PO TID 07/12/14 Rosuvastatin Calcium [Crestor] 5 mg PO DAILY 07/12/14 Solifenacin Succinate [Vesicare] 5 mg PO DAILY 07/12/14 metFORMIN HCL [Glucophage -] 500 mg PO DAILY 07/12/14 Metoprolol Succinate [Toprol XL -] 25 mg PO DAILY #30 tab.sr.24h 07/13/14 Amlodipine Besylate [Norvasc -] 10 mg PO DAILY 04/17/18 Aspirin [Ecotrin] 81 mg PO DAILY 04/17/18 Famotidine [Pepcid] 20 mg PO DAILY 04/17/18 Gas-X 1 tablet PO QID 04/17/18 Losartan Potassium [Cozaar] 100 mg PO DAILY 04/17/18 Levofloxacin [Levaquin] 500 mg PO DAILY #8 tablet 04/20/18 oxyCODONE HCL [Roxicodone -] 5 mg PO Q6H PRN #20 tablet MDD 20mg 04/20/18 Cancer: Yes (Prostate Ca) COPD: No Diabetes: Yes GI Disorders: Yes (GERD) HTN: Yes Hypercholesterolemia: Yes - Psycho Social/Smoking Cessation Hx Smoking History: Former smoker Have you smoked in the past 12 months: No Information on smoking cessation initiated: No Hx Alcohol Use: No Drug/Substance Use Hx: No Substance Use Type: None Review of Systems - Review of Systems Able to Perform ROS?: Yes Comments:: 10/31/19 11:39 GENERAL/CONSTITUTIONAL: No fever or chills. No weakness. HEAD, EYES, EARS, NOSE AND THROAT: No change in vision. No ear pain or discharge. No sore throat. CARDIOVASCULAR: No chest pain, palpitations, or lightheadedness. RESPIRATORY: + for shortness of breath, cough, and CHURCH. No hemoptysis. GASTROINTESTINAL: No abdominal pain, nausea, vomiting, diarrhea, or constipation. GENITOURINARY: No dysuria, frequency, hematuria, or change in urination. MUSCULOSKELETAL: No joint or muscle swelling or pain. No neck or back pain. SKIN: No rash or lesions. NEUROLOGIC: No headache, numbness, tingling, focal weakness, loss of consciousness, or change in strength/sensation. Is the patient limited Albanian proficient: No *Physical Exam - Vital Signs Last Vital Signs Temp Pulse Resp BP Pulse Ox 97.9 F 113 H 20 161/87 95 10/31/19 11:05 10/31/19 11:05 10/31/19 11:05 10/31/19 11:05 10/31/19 11:05 - Physical Exam 10/31/19 11:40 GENERAL: Well developed, well nourished. Awake and alert. No acute distress. HEENT: Normocephalic, atraumatic. Hearing grossly normal. Moist mucous membranes. PERRLA, EOMI. No conjunctival pallor. Sclera are non-icteric. NECK: Supple. Full ROM. No JVD. CARDIOVASCULAR: Tachycardic with regular rhythm. No murmurs, rubs, or gallops. PULMONARY: No evidence of respiratory distress. Lungs clear to auscultation bilaterally. No wheezing, rales, or rhonchi. ABDOMINAL: Soft. Non-tender. Non-distended. No rebound or guarding. GENITOURINARY: No CVA tenderness bilaterally. MUSCULOSKELETAL: Normal range of motion at all joints. No bony deformities or tenderness. EXTREMITIES: No cyanosis. No clubbing. 2+ pitting edema in b/l LE up to knees. No calf tenderness or swelling. SKIN: Warm and dry. Normal capillary refill. No rashes. No jaundice. NEUROLOGICAL: Alert, awake, appropriate. Cranial nerves 2-12 grossly intact. Normal speech. Gait is normal without ataxia. PSYCHIATRIC: Cooperative. Good eye contact. Appropriate mood and affect. ED Treatment Course - LABORATORY CBC & Chemistry Diagram: 10/31/19 12:20 10/31/19 12:20 Medical Decision Making - Medical Decision Making 10/31/19 12:57 74M with a PMH of HTN, T2DM, Dyslipedemia, CA Prostate s/p Radio Active seeds implant in 2006, Fe deficiency anemia, who presents with cough and shortness of breath x 1 day. Pt noted to be hypoxic on room air and at rest and tachycardic concerning for ACS, PE, CHF. Lungs are clear bilaterally but swelling noted in lower extremities. Pt screened positive for COVID and now in isolation. Pending labs and imaging. 10/31/19 13:56 Lab work and notable for CBC showing leukocytosis to 14.6. CMP notable for elevated total bili. Troponin elevated to 0.08 and BNP slightly elevated. Influenza and RSV negative. COVID pending. Will give full dose aspirin. 10/31/19 14:12 Case d/w Dr. Delgadillo who agrees for admission pending CXR. 10/31/19 14:25 Preliminary read of CXR shows congestive changes with questionable infiltrate in LLL which is unchanged c/w prior CXR. Inpt team informed of CXR completion. Admitting order changed. Discharge - Discharge Information Problems reviewed: Yes Clinical Impression/Diagnosis: SOB (shortness of breath), Elevated troponin Condition: Guarded - Admission Yes - Follow up/Referral Referrals: Scott Erwin MD [Primary Care Provider] - - Patient Discharge Instructions - Post Discharge Activity
[2019-10-31 12:53] LABS: EOS % 0.8 % (0-4.5); HEMATOCRIT 38.3 % (35.4-49); HEMOGLOBIN 12.4 GM/dL (11.7-16.9); LYMPH % 13.2 % (8-40); MCH 27.1 pg (25.7-33.7); MCHC 32.4 g/dl (32.0-35.9); MEAN CELL VOLUME 83.6 fl (80-96); MONO % 6.8 % (3.8-10.2); NEUT % 78.2 % (42.8-82.8); PLATELET COUNT 245 K/MM3 (134-434); RBC 4.58 M/mm3 (4.00-5.60); RDW 18.3 % (11.9-15.9); WHITE BLOOD COUNT 14.6 K/mm3 (4.0-10.0)
[2019-10-31 13:01] LABS: INR 1.08 (0.83-1.09); PROTHROMBIN TIME (PATIENT) 12.7 SEC (9.7-13.0)
[2019-10-31 13:04] LABS: ACTIVATED PTT 31.1 SECONDS (25.2-36.5)
[2019-10-31 13:20] LABS: ALBUMIN 3.8 g/dl (3.4-5.0); BILIRUBIN,TOTAL 1.2 mg/dL (0.2-1); BLOOD UREA NITROGEN 19.8 mg/dL (7-18); CALCIUM 9.8 mg/dL (8.5-10.1); CREATININE 1.3 mg/dL (0.55-1.3); MAGNESIUM 1.5 mg/dL (1.8-2.4); POTASSIUM 4.5 mmol/L (3.5-5.1); TOT PROT 7.7 g/dl (6.4-8.2)
--- NOTE | 2019-10-31 13:43 | PDOC ---
Documentation entered by Charleen Santana SCRIBE, acting as scribe for Mraisabel Arana MD. Marisabel Arana MD: This documentation has been prepared by the Max de souza Torie, SCRIBE, under my direction and personally reviewed by me in its entirety. I confirm that the documentation accurately reflects all work, treatment, procedures, and medical decision making performed by me. Attending Attestation - Resident Resident Name: InnaJadiel - ED Attending Attestation I have performed the following: I have examined & evaluated the patient, The case was reviewed & discussed with the resident, I agree w/resident's findings & plan, Exceptions are as noted - HPI HPI: 10/31/19 11:48 Patient is a 74 year old male with a significant medical HX of HTN, DM, dysthmia, who presents to the ED today with SOB that began yesterday. Patient reports having a sudden episode of SOB after bending over to get water from the sink. Patient reports, after sitting down for 10 minutes at rest, his SOB subsided. Patient states that on Wednesday, he took the garbage out and felt SOB again which then subsided after sitting down. Patient has a dry cough in addition to the SOB and dyspnea on exertion. Patient states he slept flat last night and said he had a good night's sleep. He states he felt short of breath walking to the room in the ER. Patient was a smoker, he quit 30 years ago. 10/31/19 11:59 - Physicial Exam PE: 10/31/19 13:41 NAD, well appearing RRR CTA, no crackles, desat w/ ambulation soft ntnd, obese 2+ pitting edema ble A&O x 3 - Medical Decision Making 10/31/19 13:41 74yoM hx of past cig smoking, CAD, HTN presents w/ sudden onset of sob x 1.5 days. No fevers, no cough, no congestion. DDx includes mi, chf, pe, less likely viral syndrome. - labs - cxr - r/o viral syndromes and cov-2 based upon sob - admit. Discharge - Discharge Information Problems reviewed: Yes Clinical Impression/Diagnosis: SOB (shortness of breath) - Follow up/Referral Referrals: Scott Erwin MD [Primary Care Provider] - - Patient Discharge Instructions - Post Discharge Activity
[2019-10-31] MEDS ORDERED: ASPIRIN COATED 81 MG TABLET.EC PO ONE (13:53)
[2019-10-31] MEDS ORDERED: oxyCODONE HCL 5 MG TABLET PO PRN (14:13)
[2019-10-31] MEDS ORDERED: ASPIRIN 325 MG ENTERIC COATED TABLET (FP) ONE (14:42)
--- NOTE | 2019-10-31 15:10 | CON.CARD ---
Cardiology Consult (text) - Consultation Consultation Note: Cardiology We were asked to consult for shortness of breath. The patient presents to ER for several days of SOB and cough, found to have elevated WBC. Concern for viral URI: Influenza negative. There is concern for COVID 19 as he screened positive in triage and is now being ruled out for Coronavirus. I have reviewed the HPIs documented by the ER physicians, vital signs, labs, CXR image and ECG. I have also called the patient on his cell phone ([phone]) and obtained my own HPI: -For two days he has felt SOB, short of breath just talking with dry cough. He denies chest pain of any kind. No pleuritic pain, no pressure, no jaw pain. He denies palpitations. Denies LE edema worse than baseline (has phlebitis), denies PND, orthopnea. He denies chills, fever. He has no recent air travel or known sick contacts. He denies hemoptysis. He has no rashes/joint pains/ headache. No abdominal pain, nausea, vomiting or diarrhea. Labs are remarkable for: WBC 15, BNP slightly elevated of 722, creat 1.3, TnI = 0.08 The CXR does not show clear infiltrate nor clear signs of increased peripheral vascular congestion. ECG was personally reviewed and compared to priors from office and from [facility] and showed no acute changes: NSR 99bpm, leftward axis, Poor R wave progression V1-V4 similar to old ECGs and no acute ST elevations nor depressions. PMH: HTN, HLD, DM, Paroxysmal atrial tachycardia, GERD, Prostate CA s/p seed implants. MEDS: ASA 81mg daily Losartan 100mg daily Toprol Xl 25mg daily Amlodipine 10mg daily Crestor 5mg daily Metformin 500mg BID Pepcid 20mg daily. Recorded vital signs were reviewed in the EMR: T: 97.9, P: 113bpm, BP: 161/87, O2: 95-100% DATA: Nuclear MPI 05/2017: normal perfusion, normal LVEF Nuclear MPI 06/2014: small and mild apical perfusion defect, c/w mild ischemia (6:08 Kevyn, 110% target heart rate, epidose of PAT on treadmill) Echo 05/2017 (office) Normal. IMP: SOB at rest with cough and Leukocytosis, r/o Coronavirus Protocol initiated by Emergency Department based on + screening The differential also includes: acute COPD, mild CHF decompensation, less likely ischemia (stable ECG) or pulmonary embolism. The equivocal TnI with normal CK also points away from acute type I [place], but may reflect chronic diastolic dysfunction/CHF vs myocardial injury / strain in setting of acute infection secondary to cytokine response/SIRS. REC: 1. Isolation protocol for r/o COVID 19 as per primary medical team and ID. 2. Continue serial ECGs and cardiac enzymes q6h x 2 additional sets to establish trend. 3. Supplimental O2/abx as per primary team and ID. 4. Suggest pulmonary consultation and CT scan of chest- this can help better define lung parenchyma and also r/o pulmonary embolism definitively. 5. If remains hemodynamically stable and afebrile over next 12-24 hours (which would argue against serious infection), can give gentle trial of diuresis with either Lasix 40mg PO daily or 20mg IV daily. 6. Would repeat echo only if: significant upswing in cardiac enzymes, arrhythmias, worsening or more clear clinical CHF picture. Otherwise, repeat when ruled out for COVID 19. 7. Would continue home meds listed above and use hold parameters on BP medications (hold for SBP < 110/70 or Pulse < 60bpm). Above assessment/ plan based upon review of ER documents, personal cell phone conversation with patient in ER, review of vitals, labs, CXR , ECG, prior medical records/ prior medical history as obtained from old hospital and office records.
[2019-10-31 15:28] LABS: ARTERIAL BLOOD GAS BASE EXCESS -0.6 meq/l (-2-2); ARTERIAL BLOOD GAS PCO2 31.4 mmHg (35-45); ARTERIAL BLOOD GAS PO2 73.4 mmHg (80-100); ARTERIAL BLOOD GAS pH 7.46 (7.35-7.45); CARBOXYHEMOGLOBIN 1.2 % (0-2)
--- NOTE | 2019-10-31 15:45 | HP ---
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 History Source: Patient - Past Medical History Cardiovascular: Yes: HTN, Hyperlipdemia Gastrointestinal: Yes: GERD Hepatobiliary: Yes: Cholelithiasis Heme/Onc: Yes: Other (Ca Prosatate) Endocrine: Yes: Diabetes Mellitus - Past Surgical History Past Surgical History: Yes: Cholecystectomy, Colonoscopy - Smoking History Smoking history: Former smoker Have you smoked in the past 12 months: No - Alcohol/Substance Use Hx Alcohol Use: No - Social History ADL: Independent Home Medications - Allergies Allergies/Adverse Reactions: Allergies Allergy/AdvReac Type Severity Reaction Status Date / Time diazepam [From Valium] Allergy Verified 10/31/19 11:05 - Home Medications Home Medications: Ambulatory Orders Esomeprazole Mag Trihydrate [Nexium] 40 mg PO DAILY 07/12/14 Lipase/Protease/Amylase [Creon Dr 24,000 Units Capsule] 1 each PO TID 07/12/14 Rosuvastatin Calcium [Crestor] 5 mg PO DAILY 07/12/14 Solifenacin Succinate [Vesicare] 5 mg PO DAILY 07/12/14 metFORMIN HCL [Glucophage -] 500 mg PO DAILY 07/12/14 Metoprolol Succinate [Toprol XL -] 25 mg PO DAILY #30 tab.sr.24h 07/13/14 Amlodipine Besylate [Norvasc -] 10 mg PO DAILY 04/17/18 Aspirin [Ecotrin] 81 mg PO DAILY 04/17/18 Famotidine [Pepcid] 20 mg PO DAILY 04/17/18 Gas-X 1 tablet PO QID 04/17/18 Losartan Potassium [Cozaar] 100 mg PO DAILY 04/17/18 Levofloxacin [Levaquin] 500 mg PO DAILY #8 tablet 04/20/18 oxyCODONE HCL [Roxicodone -] 5 mg PO Q6H PRN #20 tablet MDD 20mg 04/20/18 Family Medical History Family Hx Cancer: Mother Family Hx Cardiac Disorders: Mother, Father Review of Systems - Review of Systems Constitutional: denies: Chills, Diaphoresis, Fever, Lethargy Eyes: denies: Blind Spots, Blurred Vision, Double Vision HENT: denies: Difficult Swallowing, Ear Discharge, Ear Pain, Epistaxis Neck: denies: Decreased ROM, Lumps, Pain on Movement, Stiffness Cardiovascular: reports: Edema, Shortness of Breath. denies: Chest Pain, Palpitations Respiratory: reports: Cough, Exercise Intolerance. denies: Hemoptysis, Orthopnea Gastrointestinal: denies: Abdominal Pain, Bloating, Constipation, Diarrhea Genitourinary: denies: Burning, Discharge, Dysuria, Flank Pain Musculoskeletal: denies: Back Pain, Crepitus, Decreased ROM, Extremity Pain Integumentary: denies: Blister, Bruising, Change in Color, Eczema Neurological: denies: Change in LOC, Change in Speech, Confusion Endocrine: denies: Excessive Sweating, Flushing, Increased Hunger Psychiatric: denies: Altered Sleep Pattern, Anxiety, Depression Physical Examination Vital Signs: Vital Signs Temperature 97.9 F 10/31/19 11:05 Pulse Rate 113 H 10/31/19 11:05 Respiratory Rate 20 10/31/19 11:05 Blood Pressure 161/87 10/31/19 11:05 O2 Sat by Pulse Oximetry (%) 100 10/31/19 11:05 General: Elderly man, comfortable, not in distress HEENT; mucous membranes moist, no anemia, no jaundice, PERRLA, no nystagmus Neck: No JVD, supple, no bruit, thyroid palpably normal, normal carotid pulsations. Chest: Nontender, clear to auscultation bilaterally CVS: S1-S2 regular no murmur/gallop/rub Abdomen: Nondistended, soft, bowel sounds present. 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 , no gross motor sensory deficit Labs: CBC, BMP 10/31/19 12:20 10/31/19 12:20 Imaging - Results Chest X-ray: Report Reviewed (Normal no acute infiltrate) EKG: Report Reviewed (99 normal sinus rhythm no interval changes since previous EKG no acute ST-T changes) Problem List - Problems (1) SOB (shortness of breath) Assessment/Plan: No complaint of febrile sickness or sick contact, only complaint of cough and shortness of breath acute onset elevated BNP possibility of diastolic dysfunction, will follow d-dimer and l LE Doppler to rule out DVT/VTE if positive will proceed for the CT, cardiology consult, DuoNeb as needed. Problems reviewed: Yes Code(s): R06.02 - SHORTNESS OF BREATH (2) Elevated troponin Assessment/Plan: No acute EKG we will continue metoprolol, Crestor and aspirin follow-up car diology recommendations. Problems reviewed: Yes Code(s): R79.89 - OTHER SPECIFIED ABNORMAL FINDINGS OF BLOOD CHEMISTRY (3) Hypertension Assessment/Plan: Well-controlled continue all home medications Problems reviewed: Yes Code(s): I10 - ESSENTIAL (PRIMARY) HYPERTENSION (4) Hyperlipidemia Assessment/Plan: Continue Crestor Problems reviewed: Yes Code(s): E78.5 - HYPERLIPIDEMIA, UNSPECIFIED (5) CA of prostate Assessment/Plan: Completed treatment 2017 at present cancer free Problems reviewed: Yes Code(s): C61 - MALIGNANT NEOPLASM OF PROSTATE (6) T2DM (type 2 diabetes mellitus) Assessment/Plan: Hold p.o. meds metformin, follow-up hemoglobin A1c lipid panel and correction dose lispro pre-meal. Problems reviewed: Yes Code(s): E11.9 - TYPE 2 DIABETES MELLITUS WITHOUT COMPLICATIONS (7) Hypomagnesemia Assessment/Plan: Repleted Problems reviewed: Yes Code(s): E83.42 - HYPOMAGNESEMIA
[2019-10-31] MEDS ORDERED: MAGNESIUM SULF 50% (8.12 MEQ/2 ML-1 GM VIAL) IVPB ONE (15:51)
[2019-10-31] MEDS ORDERED: ALBUTEROL SO4 2.5/IPRATROPIUM 0.5 INH SOL 3 ML VIAL.NEB. NEB PRN (15:55)
[2019-10-31] MEDS ORDERED: ENOXAPARIN NA (PORCINE) 40 MG/0.4 ML DISP.SYRIN SQ SCH (16:00)
[2019-10-31] MEDS ORDERED: ACETAMINOPHEN 325 MG TABLET (FP) PO PRN (16:06)
[2019-10-31 16:33] LABS: EPI CELLS 11 /HPF (0-5/HPF); HYALINE CASTS 1 /lpf (0-8); PH,URINE 5.5 (5.0-8.0); URINE APPEARANCE CLEAR; URINE BACTERIA 253 /hpf (NEGATIVE); URINE BILIRUBIN NEGATIVE (NEGATIVE); URINE COLOR YELLOW; URINE GLUCOSE (UA) 2+ (NEGATIVE); URINE KETONE TRACE (NEGATIVE); URINE LEUK ESTERASE NEGATIVE (NEGATIVE); URINE NITRITE NEGATIVE (NEGATIVE); URINE PROTEIN 3+ (NEGATIVE); URINE RBC 3 /hpf (0-4); URINE WBC 8 /hpf (0-5)
[2019-10-31] MEDS ORDERED: MAGNESIUM 1GM/D5W - 1 GM/100 ML IVPB IVPB ONE (16:38)
[2019-10-31] MEDS ORDERED: ENOXAPARIN NA (PORCINE) 40 MG/0.4 ML DISP.SYRIN SQ ONE (16:38)
[2019-10-31] MEDS: INSULIN SLIDING SCALE (NOVOLOG) 1 VIAL SQ SCH (16:58)
--- NOTE | 2019-10-31 17:29 | HOSP ---
Subjective - Review of Symptoms Events since last encounter: Vital Signs Temperature 98.6 F 10/31/19 16:23 Pulse Rate 98 H 10/31/19 16:23 Respiratory Rate 22 H 10/31/19 16:23 Blood Pressure 138/88 10/31/19 16:23 O2 Sat by Pulse Oximetry (%) 100 10/31/19 16:23 CBCD WBC 14.6 K/mm3 (4.0-10.0) H 10/31/19 12:20 RBC 4.58 M/mm3 (4.00-5.60) 10/31/19 12:20 Hgb 12.4 GM/dL (11.7-16.9) 10/31/19 12:20 Hct 38.3 % (35.4-49) 10/31/19 12:20 MCV 83.6 fl (80-96) 10/31/19 12:20 MCHC 32.4 g/dl (32.0-35.9) 10/31/19 12:20 RDW 18.3 % (11.9-15.9) H 10/31/19 12:20 Plt Count 245 K/MM3 (134-434) 10/31/19 12:20 MPV 8.0 fl (7.5-11.1) 10/31/19 12:20 CMP Sodium 138 mmol/L (136-145) 10/31/19 12:20 Potassium 4.5 mmol/L (3.5-5.1) 10/31/19 12:20 Chloride 106 mmol/L (98-107) 10/31/19 12:20 Carbon Dioxide 23 mmol/L (21-32) 10/31/19 12:20 Anion Gap 10 MMOL/L (8-16) 10/31/19 12:20 BUN 19.8 mg/dL (7-18) H 10/31/19 12:20 Creatinine 1.3 mg/dL (0.55-1.3) 10/31/19 12:20 Random Glucose 195 mg/dL (74-106) H 10/31/19 12:20 Calcium 9.8 mg/dL (8.5-10.1) 10/31/19 12:20 Total Bilirubin 1.2 mg/dL (0.2-1) H 10/31/19 12:20 AST 16 U/L (15-37) 10/31/19 12:20 ALT 26 U/L (13-61) 10/31/19 12:20 Alkaline Phosphatase 72 U/L (45-117) 10/31/19 12:20 Total Protein 7.7 g/dl (6.4-8.2) 10/31/19 12:20 Albumin 3.8 g/dl (3.4-5.0) 10/31/19 12:20 CARDIAC ENZYMES Creatine Kinase 36 U/L (26-308) 10/31/19 15:53 Troponin I 0.08 ng/ml (0.00-0.05) H 10/31/19 15:53 Troponin I Cancelled 10/31/19 15:53 Current Medications Generic Name Dose Route Start Last Admin Trade Name Freq PRN Reason Stop Dose Admin Acetaminophen 650 mg 10/31/19 16:06 Tylenol - PO Q6H PRN FEVER Albuterol/Ipratropium 1 amp 10/31/19 15:55 Duoneb - NEB Q6H PRN SHORTNESS OF BREATH Amlodipine Besylate 10 mg 11/01/19 10:00 Norvasc - PO DAILY [facility] Aspirin 81 mg 11/01/19 10:00 Ecotrin - PO DAILY JEANETTE Enoxaparin Sodium 40 mg 10/31/19 16:00 10/31/19 16:57 Lovenox - SQ 40 mg DAILY JEANETTE Administration Famotidine 20 mg 11/01/19 10:00 Pepcid - PO DAILY [facility] Insulin Aspart 1 vial 10/31/19 16:30 10/31/19 16:58 Novolog Vial Sliding Scale - SQ 2 units TIDAC JEANETTE Administration Protocol Losartan Potassium 100 mg 11/01/19 10:00 Losartan Potassium PO DAILY JEANETTE Metoprolol Succinate 25 mg 11/01/19 10:00 Toprol Xl - PO DAILY JEANETTE Oxycodone HCl 5 mg 10/31/19 14:13 Roxicodone - PO Q6H PRN PAIN LEVEL 4-10 Pancrelipase 4 cap 10/31/19 17:[address] 6,000 Units Capsule PO TIDCM JEANETTE Pantoprazole Sodium 40 mg 11/01/19 10:00 Protonix - PO DAILY [facility] Rosuvastatin Calcium 5 mg 11/01/19 10:00 Crestor - PO DAILY [facility] Solifenacin 5 mg 11/01/19 10:00 Vesicare - PO DAILY [facility] Home Medications Medication Instructions Recorded Esomeprazole Mag Trihydrate 40 mg PO DAILY 07/12/14 [Nexium] Lipase/Protease/Amylase [Creon Dr 1 each PO TID 07/12/14 24,000 Units Capsule] Rosuvastatin Calcium [Crestor] 5 mg PO DAILY 07/12/14 Solifenacin Succinate [Vesicare] 5 mg PO DAILY 07/12/14 metFORMIN HCL [Glucophage -] 500 mg PO DAILY 07/12/14 Metoprolol Succinate [Toprol XL -] 25 mg PO DAILY #30 tab.sr.24h 07/13/14 Amlodipine Besylate [Norvasc -] 10 mg PO DAILY 04/17/18 Aspirin [Ecotrin] 81 mg PO DAILY 04/17/18 Famotidine [Pepcid] 20 mg PO DAILY 04/17/18 Gas-X 1 tablet PO QID 04/17/18 Losartan Potassium [Cozaar] 100 mg PO DAILY 04/17/18 Levofloxacin [Levaquin] 500 mg PO DAILY #8 tablet 04/20/18 oxyCODONE HCL [Roxicodone -] 5 mg PO Q6H PRN #20 tablet MDD 20mg 04/20/18 Receive microblog that the patient has a right leg DVT on US read by Dr.Rogers Etienne. will start the patient on Lovenox 110mg BID, monitor h/h and creatinine level, perhaps Noac's in am. Physical Examination Vital Signs: Vital Signs Temperature 98.6 F 10/31/19 16:23 Pulse Rate 98 H 10/31/19 16:23 Respiratory Rate 22 H 10/31/19 16:23 Blood Pressure 138/88 10/31/19 16:23 O2 Sat by Pulse Oximetry (%) 100 10/31/19 16:23 Labs: CBC, BMP 10/31/19 12:20 10/31/19 12:20
[2019-10-31] MEDS ORDERED: ENOXAPARIN NA (PORCINE) 120 MG/0.8 ML DISP.SYRIN SQ ONE (17:32)
[2019-10-31] MEDS: LIPASE/PROTEASE/AMYLASE 6,000 UNIT CAPSULE PO SCH (19:14)
[2019-11-01 01:29] VITALS: BMI 30.1
[2019-11-01] MEDS: INSULIN SLIDING SCALE (NOVOLOG) 1 VIAL SQ SCH ×3 (06:52→17:10)
[2019-11-01] MEDS: ENOXAPARIN NA (PORCINE) 120 MG/0.8 ML DISP.SYRIN SQ SCH ×2 (07:12→17:09)
[2019-11-01] MEDS ORDERED: PT OWN MED DRAWER 7, Y5N ONE ×5 (07:24→18:29)
--- NOTE | 2019-11-01 07:32 | PN ---
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 - Current Medication List Current Medications: Active Medications Acetaminophen (Tylenol -) 650 mg PO Q6H PRN PRN Reason: FEVER Albuterol/Ipratropium (Duoneb -) 1 amp NEB Q6H PRN PRN Reason: SHORTNESS OF BREATH Amlodipine Besylate (Norvasc -) 10 mg PO DAILY [facility] Aspirin (Ecotrin -) 81 mg PO DAILY [facility] Enoxaparin Sodium (Lovenox -) 110 mg SQ Q12H [facility] Last Admin: 11/01/19 07:12 Dose: 110 mg Documented by: Famotidine (Pepcid -) 20 mg PO DAILY [facility] Insulin Aspart (Novolog Vial Sliding Scale -) 1 vial SQ TIDAC [facility]; Protocol Last Admin: 11/01/19 06:52 Dose: 2 units Documented by: Losartan Potassium (Losartan Potassium) 100 mg PO DAILY [facility] Metoprolol Succinate (Toprol Xl -) 25 mg PO DAILY [facility] Oxycodone HCl (Roxicodone -) 5 mg PO Q6H PRN PRN Reason: PAIN LEVEL 4-10 Pancrelipase (Creon Dr 6,000 Units Capsule) 4 cap PO TIDCM [facility] Last Admin: 10/31/19 19:14 Dose: 4 cap Documented by: Pantoprazole Sodium (Protonix -) 40 mg PO DAILY [facility] Rosuvastatin Calcium (Crestor -) 5 mg PO DAILY [facility] Solifenacin (Vesicare -) 5 mg PO DAILY [facility] - Objective Vital Signs: Vital Signs Temperature 98.4 F 11/01/19 06:00 Pulse Rate 102 H 11/01/19 06:00 Respiratory Rate 18 11/01/19 06:00 Blood Pressure 124/76 11/01/19 06:00 O2 Sat by Pulse Oximetry (%) 96 11/01/19 00:59 Labs: CBC, BMP 10/31/19 12:20 10/31/19 12:20 INR, PTT INR 1.08 (0.83-1.09) 10/31/19 12:20 - ....Imaging Cat Scan: Report Reviewed (CT chest with PE protocol: Bilateral extensive upper lobe and lower lobe PE) Problem List - Problems (1) SOB (shortness of breath) Assessment/Plan: Work-up shows bilateral extensive PE experience outpatient acute onset shortness of breath, also right lower extremity DVT on full dose anticoagulation, will discuss with ID if patient needs call with rule out. Code(s): R06.02 - SHORTNESS OF BREATH (2) Elevated troponin Assessment/Plan: Most likely due to RV strain secondary to bilateral extensive PE, no acute EKG we will continue metoprolol, Crestor and aspirin follow-up cardiology recommendations. Follow-up echocardiogram Code(s): R79.89 - OTHER SPECIFIED ABNORMAL FINDINGS OF BLOOD CHEMISTRY (3) Hypertension Assessment/Plan: Well-controlled continue all home medications Code(s): I10 - ESSENTIAL (PRIMARY) HYPERTENSION (4) Hyperlipidemia Assessment/Plan: Continue Crestor Code(s): E78.5 - HYPERLIPIDEMIA, UNSPECIFIED (5) CA of prostate Assessment/Plan: Completed treatment 2017 at present cancer free Code(s): C61 - MALIGNANT NEOPLASM OF PROSTATE (6) T2DM (type 2 diabetes mellitus) Assessment/Plan: Hold p.o. meds metformin, follow-up hemoglobin A1c lipid panel and correction dose lispro pre-meal. Code(s): E11.9 - TYPE 2 DIABETES MELLITUS WITHOUT COMPLICATIONS (7) Hypomagnesemia Assessment/Plan: Repleted Code(s): E83.42 - HYPOMAGNESEMIA (8) EDMUND (acute kidney injury) Assessment/Plan: Due to IV contrast will start gentle hydration follow-up BMP in the morning. Problems reviewed: Yes Code(s): N17.9 - ACUTE KIDNEY FAILURE, UNSPECIFIED
[2019-11-01 07:56] LABS: BASO % 0.9 % (0-2.0); EOS % 1.9 % (0-4.5); LYMPH % 25.2 % (8-40); MCH 27.5 pg (25.7-33.7); MCHC 33.5 g/dl (32.0-35.9); MEAN CELL VOLUME 82.3 fl (80-96); MEAN PLT VOLUME 7.9 fl (7.5-11.1); MONO % 9.8 % (3.8-10.2); NEUT % 62.2 % (42.8-82.8); PLATELET COUNT 215 K/MM3 (134-434); RBC 4.01 M/mm3 (4.00-5.60); RDW 18.1 % (11.9-15.9); WHITE BLOOD COUNT 12.1 K/mm3 (4.0-10.0)
[2019-11-01] MEDS: LIPASE/PROTEASE/AMYLASE 6,000 UNIT CAPSULE PO SCH ×3 (08:00→17:09)
[2019-11-01 08:12] LABS: BLOOD UREA NITROGEN 21.9 mg/dL (7-18); CALCIUM 9.9 mg/dL (8.5-10.1); CREATININE 1.4 mg/dL (0.55-1.3); POTASSIUM 4.2 mmol/L (3.5-5.1)
[2019-11-01] MEDS: LOSARTAN POTASSIUM 50 MG TABLET (FP) PO SCH (09:39)
[2019-11-01] MEDS: SOLIFENACIN SUCCINATE 5 MG TAB PO SCH ×2 (09:39→10:11)
[2019-11-01] MEDS: amLODIPine BESYLATE 5 MG TABLET (FP) PO SCH (09:40)
[2019-11-01] MEDS: ASPIRIN COATED 81 MG TABLET.EC PO SCH (09:40)
[2019-11-01] MEDS: PANTOPRAZOLE 40 MG TABLET PO SCH (09:40)
[2019-11-01] MEDS: ROSUVASTATIN CA 5 MG TABLET (FP) PO SCH (09:40)
[2019-11-01] MEDS: metoPROLOL SUCCINATE 25 MG TAB.SR.24H (FP) PO SCH (09:40)
[2019-11-01] MEDS: FAMOTIDINE 20 MG TABLET PO SCH (09:40)
[2019-11-01] MEDS ORDERED: PATIENT'S OWN MEDICATION (NON-FORMULARY) (Esomeprazole Mag Trihydrate [Nexium] 40 MG) PO SCH (10:00)
[2019-11-01] MEDS ORDERED: LOSARTAN POTASSIUM 100 MG TABLET PO SCH (10:00)
[2019-11-01] MEDS ORDERED: SODIUM CHLORIDE 1,000 ML IV SCH (10:15)
--- NOTE | 2019-11-01 10:21 | EKG ---
Test Reason : Blood Pressure : / mmHG Vent. Rate : 099 BPM Atrial Rate : 099 BPM P-R Int : 200 ms QRS Dur : 094 ms QT Int : 358 ms P-R-T Axes : 021 -14 037 degrees QTc Int : 459 ms NORMAL SINUS RHYTHM CANNOT RULE OUT INFERIOR INFARCT , AGE UNDETERMINED ABNORMAL ECG WHEN COMPARED WITH ECG OF 17-APR-2018 11:10, NO SIGNIFICANT CHANGE WAS FOUND Confirmed by MD PHOEBE, MODE ([id number]) on 11/01/2019 10:20:43 AM Referred By: Confirmed By:MODE SANDHU MD
--- NOTE | 2019-11-01 11:25 | PN ---
Progress Note (short form) - Note Progress Note: PULMONARY CONSULTATION DICTATED 11/01/19 IMP DYSPNEA EXTENSIVE BILATERAL PULMONARY EMBOLI LIKELY PROVOKED SEDENTARY LIFESTYLE RLE DVT DM PROSTATE CA S/P RADIATION SEED IMPLANTS ANEMIA HLD EDMUND LOW CLINICAL SUSPICION FOR COVID-19 PLAN LOVENOX O2 ECHO TO EVALUATE RV FUNCTION W/U FOR HYPERCOAGULABLE STATE OUTPATIENT AGE APPROPRIATE CANCER SCREENING OUTPATIENT COVID-19 SEROLOGY PENDING MONITOR LYTES,REAL FUNCTION DR GALICIA Problem List - Problems (1) Pulmonary embolism Code(s): I26.99 - OTHER PULMONARY EMBOLISM WITHOUT ACUTE COR PULMONALE (2) EDMUND (acute kidney injury) Code(s): N17.9 - ACUTE KIDNEY FAILURE, UNSPECIFIED (3) Elevated troponin Code(s): R79.89 - OTHER SPECIFIED ABNORMAL FINDINGS OF BLOOD CHEMISTRY (4) Hyperlipidemia Code(s): E78.5 - HYPERLIPIDEMIA, UNSPECIFIED (5) Hypertension Code(s): I10 - ESSENTIAL (PRIMARY) HYPERTENSION (6) SOB (shortness of breath) Code(s): R06.02 - SHORTNESS OF BREATH (7) CA of prostate Code(s): C61 - MALIGNANT NEOPLASM OF PROSTATE (8) Hypertension Code(s): I10 - ESSENTIAL (PRIMARY) HYPERTENSION (9) T2DM (type 2 diabetes mellitus) Code(s): E11.9 - TYPE 2 DIABETES MELLITUS WITHOUT COMPLICATIONS (10) DVT (deep venous thrombosis) Code(s): I82.409 - ACUTE EMBOLISM AND THOMBOS UNSP DEEP VN UNSP LOWER EXTREMITY
--- NOTE | 2019-11-01 12:48 | PN ---
Progress Note (short form) - Note Progress Note: s: spoke with patient by phone. Feels better, no chest pain, palps, dizziness, dyspnea. On COVID-19 rule out precautions Current Medications Acetaminophen (Tylenol -) 650 mg PO Q6H PRN PRN Reason: FEVER Albuterol/Ipratropium (Duoneb -) 1 amp NEB Q6H PRN PRN Reason: SHORTNESS OF BREATH Amlodipine Besylate (Norvasc -) 10 mg PO DAILY [facility] Last Admin: 11/01/19 09:40 Dose: 10 mg Documented by: Aspirin (Ecotrin -) 81 mg PO DAILY [facility] Last Admin: 11/01/19 09:40 Dose: 81 mg Documented by: Enoxaparin Sodium (Lovenox -) 110 mg SQ Q12H [facility] Last Admin: 11/01/19 07:12 Dose: 110 mg Documented by: Famotidine (Pepcid -) 20 mg PO DAILY [facility] Last Admin: 11/01/19 09:40 Dose: 20 mg Documented by: Sodium Chloride (Normal Saline -) 1,000 mls @ 75 mls/hr IV ASDIR [facility] Last Admin: 11/01/19 11:02 Dose: 75 mls/hr Documented by: Insulin Aspart (Novolog Vial Sliding Scale -) 1 vial SQ TIDAC [facility]; Protocol Last Admin: 11/01/19 11:15 Dose: 4 units Documented by: Losartan Potassium (Cozaar -) 100 mg PO DAILY [facility] Last Admin: 11/01/19 09:39 Dose: 100 mg Documented by: Metoprolol Succinate (Toprol Xl -) 25 mg PO DAILY [facility] Last Admin: 11/01/19 09:40 Dose: 25 mg Documented by: Oxycodone HCl (Roxicodone -) 5 mg PO Q6H PRN PRN Reason: PAIN LEVEL 4-10 Pancrelipase (Creon Dr 6,000 Units Capsule) 2 cap PO TIDCM [facility] Pantoprazole Sodium (Protonix -) 40 mg PO DAILY [facility] Last Admin: 11/01/19 09:40 Dose: 40 mg Documented by: Rosuvastatin Calcium (Crestor -) 5 mg PO DAILY [facility] Last Admin: 11/01/19 09:40 Dose: 5 mg Documented by: Simethicone (Mylicon -) 80 mg PO QID [facility] Solifenacin (Vesicare -) 5 mg PO DAILY [facility] Last Admin: 11/01/19 10:11 Dose: Not Given Documented by: Vital Signs Period Temp Pulse Resp BP Sys/Mcdermott Pulse Ox Last 24 Hr 98.4 F-98.8 F 96-106 18-22 122-138/70-88 96-100 DATA: Nuclear MPI 05/2017: normal perfusion, normal LVEF Nuclear MPI 06/2014: small and mild apical perfusion defect, c/w mild ischemia (6:08 Kevyn, 110% target heart rate, epidose of PAT on treadmill) Echo 05/2017 (office) Normal. IMP: SOB at rest with cough and Leukocytosis, r/o Coronavirus Protocol initiated by Emergency Department based on + screening Pulmonary embolism DVT HTN HLD DM Paroxysmal atrial tachycardia GERD REC: 1. Isolation protocol for r/o COVID 19 as per primary medical team and ID. 2. Elevated trop - indeterminate range, flat trend likely in setting of PE. Currently hemodynamically stable. Plan for echo to evaluate RV 3. Supplemental O2/abx as per primary team and ID, pulm consulted as well 4. Anticoagulation for PE per pulm, primary 5. cont statin, home meds for BP
--- NOTE | 2019-11-01 12:59 | CONS ---
DATE OF CONSULTATION: 11/01/2019 REFERRING PHYSICIAN: Dr. Delgadillo The patient is 74-year-old male with past medical history of type 2 diabetes mellitus, hypertension, cardiac arrhythmia, hyperlipidemia, history of prostate cancer status post radiation seed implant in 2006, currently in remission. Hypertension, longstanding history of tobacco use, approximately 2-1/2 packs per day for 29 years, quit 33 years ago. History of phlebitis as a child in right lower extremity, treated with injection of unknown medication. Admitted to [facility] with complaints of shortness of breath. Patient states that he was doing well until early Wednesday morning approximately 1 a.m. At the time, he got up and he had sudden onset of shortness of breath after bending over to get some water from the sink. He says after sitting down 10 minutes of rest, he felt better, shortness of breath subsided. He states on Wednesday he took the garbage out and felt short of breath again, and it subsided after sitting down. He states he has had a dry cough for the past 3 months which he attributed to sinuses. He denies any worsening of his cough. Has dyspnea on exertion, shortness of breath. Denies any chest pains or palpitations. On the night prior to admission, the patient slept a good night's sleep. Apparently he felt short of breath when walking to the emergency room. In the ER, he was noted to have elevated troponin levels. He subsequently underwent a duplex ultrasound lower extremity which revealed right lower extremity DVT. CTA of the chest was performed, which revealed extensive bilateral pulmonary emboli, for which he was started on Lovenox. Patient denies any recent travel. Denies any recent exposure to sick contacts or COVID-19. Denies any history of occupational exposures. He states he has relatively sedentary lifestyle. PAST MEDICAL HISTORY: Again includes prostate cancer status post radiation seed implant, diabetes, hypertension, hyperlipidemia. Chronic anemia and iron deficiency anemia for which he gets iron injection. REVIEW OF SYSTEMS: Positive dyspnea on exertion. No chest pain. Positive mild cough, chronic. No fever, no chills, no hemoptysis. No abdominal pain. No lower extremity edema. CURRENT MEDICATIONS: Include Tylenol, Cozaar, Lovenox, DuoNeb, Toprol, Creon, normal saline, Vesicare, Pepcid, Crestor, NovoLog, Ecotrin, oxycodone, and Protonix. PHYSICAL EXAMINATION: General: The patient is a well-developed, well-nourished male, awake, alert, in no acute distress. Vital Signs: He is afebrile. Blood pressure is 122/75. Respiratory rate is 18. O2 saturation is 99% on room air. HEENT: Exam is normocephalic, atraumatic. Neck: Supple. Heart: Regular, S1, S2. Chest: Clear. Abdomen: Soft. Bowel sounds are positive. Extremities: No cyanosis or edema. LABORATORY: WBCs 12.1, hemoglobin 11, hematocrit 33, platelet count of 215,000. D-dimer is 4725. CT scan of the chest reveals extensive bilateral pulmonary emboli in upper and lower lobes. Large hernia. Mild chronic interstitial lung disease. No acute infiltrates or effusions. BUN 21, creatinine 1.9. Blood gas 7.46, PCO2 of 31, PO2 of 73, bicarbonate 22, and saturation 95. IMPRESSION: 1. Dyspnea secondary to extensive bilateral pulmonary emboli, likely provoked secondary to sedentary lifestyle. 2. Right lower extremity deep vein thrombosis. 3. Diabetes. 4. Prostate cancer status post radiation seed implant. 5. Anemia. 6. Hyperlipidemia. 7. acute kidney injury. 8. Low clinical suspicion for COVID-19. PLAN: Lovenox, supplemental O2, echo to evaluate RV function, workup for hypercoagulable state as outpatient. Age-appropriate cancer screening as outpatient. COVID-19 serology pending. ROBERT GALICIA M.D. [id number]
[2019-11-01] MEDS: SIMETHICONE 80 MG TAB.CHEW (FP) PO SCH ×3 (13:02→21:33)
--- NOTE | 2019-11-01 14:03 | CON.ID ---
Consult Consult Specialty:: infectious diseases - Past Medical History Cardio/Vascular: Yes: HTN, Hyperlipdemia Gastrointestinal: Yes: GERD Hepatobiliary: Yes: Cholelithiasis Endocrine: Yes: Diabetes Mellitus - Past Surgical History Past Surgical History: Yes: Cholecystectomy, Colonoscopy - Alcohol/Substance Use Hx Alcohol Use: No - Smoking History Smoking history: Former smoker Have you smoked in the past 12 months: No If you are a former smoker, when did you quit?: 30 YRS AGO - Social History ADL: Independent Home Medications - Allergies Allergies/Adverse Reactions: Allergies Allergy/AdvReac Type Severity Reaction Status Date / Time diazepam [From Valium] Allergy Verified 10/31/19 11:05 - Home Medications Home Medications: Ambulatory Orders Esomeprazole Mag Trihydrate [Nexium] 40 mg PO DAILY 07/12/14 Lipase/Protease/Amylase [Miriam Dr 24,000 Units Capsule] 1 each PO TID 07/12/14 Rosuvastatin Calcium [Crestor] 5 mg PO DAILY 07/12/14 Solifenacin Succinate [Vesicare] 5 mg PO DAILY 07/12/14 metFORMIN HCL [Glucophage -] 500 mg PO DAILY 07/12/14 Metoprolol Succinate [Toprol XL -] 25 mg PO DAILY #30 tab.sr.24h 07/13/14 Amlodipine Besylate [Norvasc -] 10 mg PO DAILY 04/17/18 Aspirin [Ecotrin] 81 mg PO DAILY 04/17/18 Famotidine [Pepcid] 20 mg PO DAILY 04/17/18 Gas-X 1 tablet PO QID 04/17/18 Losartan Potassium [Cozaar] 100 mg PO DAILY 04/17/18 Levofloxacin [Levaquin] 500 mg PO DAILY #8 tablet 04/20/18 oxyCODONE HCL [Roxicodone -] 5 mg PO Q6H PRN #20 tablet MDD 20mg 04/20/18 Physical Exam Vital Signs: Vital Signs Temperature 98.6 F 11/01/19 10:00 Pulse Rate 96 H 11/01/19 10:00 Respiratory Rate 18 11/01/19 10:00 Blood Pressure 122/75 11/01/19 10:00 O2 Sat by Pulse Oximetry (%) 99 11/01/19 09:00 Labs: CBC, BMP 11/01/19 06:30 11/01/19 06:30
[2019-11-02] MEDS ORDERED: PT OWN MED DRAWER 7, Y5N ONE ×3 (05:48→10:52)
[2019-11-02] MEDS: ENOXAPARIN NA (PORCINE) 120 MG/0.8 ML DISP.SYRIN SQ SCH (05:51)
[2019-11-02] MEDS: INSULIN SLIDING SCALE (NOVOLOG) 1 VIAL SQ SCH ×2 (06:16→11:26)
[2019-11-02 07:32] LABS: BASO % 1.1 % (0-2.0); EOS % 4.4 % (0-4.5); HEMATOCRIT 33.2 % (35.4-49); LYMPH % 22.5 % (8-40); MCH 27.5 pg (25.7-33.7); MCHC 33.1 g/dl (32.0-35.9); MEAN CELL VOLUME 82.9 fl (80-96); MEAN PLT VOLUME 7.9 fl (7.5-11.1); MONO % 10.8 % (3.8-10.2); NEUT % 61.2 % (42.8-82.8); PLATELET COUNT 226 K/MM3 (134-434); RDW 18.1 % (11.9-15.9); WHITE BLOOD COUNT 10.5 K/mm3 (4.0-10.0)
[2019-11-02] MEDS: LIPASE/PROTEASE/AMYLASE 6,000 UNIT CAPSULE PO SCH ×2 (08:00→12:12)
[2019-11-02 08:01] LABS: BLOOD UREA NITROGEN 19.3 mg/dL (7-18); CALCIUM 9.3 mg/dL (8.5-10.1); CREATININE 1.2 mg/dL (0.55-1.3); POTASSIUM 4.1 mmol/L (3.5-5.1)
--- NOTE | 2019-11-02 09:30 | PN ---
Progress Note (short form) - Note Progress Note: s:On COVID-19 rule out precautions. No masks available to examine pt. No overnight events. Current Medications Generic Name Dose Route Start Last Admin Trade Name Freq PRN Reason Stop Dose Admin Acetaminophen 650 mg 10/31/19 16:06 Tylenol - PO Q6H PRN FEVER Albuterol/Ipratropium 1 amp 10/31/19 15:55 Duoneb - NEB Q6H PRN SHORTNESS OF BREATH Amlodipine Besylate 10 mg 11/01/19 10:00 11/01/19 09:40 Norvasc - PO 10 mg DAILY JEANETTE Administration Aspirin 81 mg 11/01/19 10:00 11/01/19 09:40 Ecotrin - PO 81 mg DAILY JEANETTE Administration Enoxaparin Sodium 110 mg 11/01/19 06:00 11/02/19 05:51 Lovenox - SQ 110 mg Q12H JEANETTE Administration Famotidine 20 mg 11/01/19 10:00 11/01/19 09:40 Pepcid - PO 20 mg DAILY JEANETTE Administration Sodium Chloride 1,000 mls @ 75 mls/hr 11/01/19 10:15 11/01/19 11:02 Normal Saline - IV 75 mls/hr ASDIR JEANETTE Administration Insulin Aspart 1 vial 10/31/19 16:30 11/02/19 06:16 Novolog Vial Sliding Scale - SQ 2 units TIDAC JEANETTE Administration Protocol Losartan Potassium 100 mg 11/01/19 10:00 11/01/19 09:39 Cozaar - PO 100 mg DAILY JEANETTE Administration Metoprolol Succinate 25 mg 11/01/19 10:00 11/01/19 09:40 Toprol Xl - PO 25 mg DAILY JEANETTE Administration Oxycodone HCl 5 mg 10/31/19 14:13 Roxicodone - PO Q6H PRN PAIN LEVEL 4-10 Pancrelipase 2 cap 11/01/19 17:30 11/01/19 17:09 Miriam Dhillon 6,000 Units Capsule PO 2 cap TIDCM JEANETTE Administration Pantoprazole Sodium 40 mg 11/01/19 10:00 11/01/19 09:40 Protonix - PO 40 mg DAILY JEANETTE Administration Rosuvastatin Calcium 5 mg 11/01/19 10:00 11/01/19 09:40 Crestor - PO 5 mg DAILY JEANETTE Administration Simethicone 80 mg 11/01/19 14:00 11/01/19 21:33 Mylicon - PO 80 mg QID JEANETTE Administration Solifenacin 5 mg 11/01/19 10:00 11/01/19 10:11 Vesicare - PO Not Given DAILY JEANETTE Vital Signs Period Temp Pulse Resp BP Sys/Mcdermott Pulse Ox Last 24 Hr 97.5 F-98.6 F 80-96 18-20 110-122/70-76 99-100 DATA: Nuclear MPI 05/2017: normal perfusion, normal LVEF Nuclear MPI 06/2014: small and mild apical perfusion defect, c/w mild ischemia (6:08 Kevyn, 110% target heart rate, epidose of PAT on treadmill) Echo 05/2017 (office) Normal. tele: sr IMP: SOB at rest with cough and Leukocytosis, r/o Coronavirus Protocol initiated by Emergency Department based on + screening Pulmonary embolism DVT HTN HLD DM Paroxysmal atrial tachycardia GERD REC: 1. Isolation protocol for r/o COVID 19 as per primary medical team and ID. 2. Elevated trop - indeterminate range, flat trend likely in setting of PE. Currently hemodynamically stable. Plan for echo to evaluate RV when off resp isolations, currently hemodynamically stable 3. Supplemental O2/abx as per primary team and ID, pulm consulted as well 4. Anticoagulation for PE per pulm, primary 5. cont statin, home meds for BP
--- NOTE | 2019-11-02 09:37 | PN ---
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 - Current Medication List Current Medications: Active Medications Acetaminophen (Tylenol -) 650 mg PO Q6H PRN PRN Reason: FEVER Albuterol/Ipratropium (Duoneb -) 1 amp NEB Q6H PRN PRN Reason: SHORTNESS OF BREATH Amlodipine Besylate (Norvasc -) 10 mg PO DAILY [facility] Last Admin: 11/01/19 09:40 Dose: 10 mg Documented by: Aspirin (Ecotrin -) 81 mg PO DAILY [facility] Last Admin: 11/01/19 09:40 Dose: 81 mg Documented by: Enoxaparin Sodium (Lovenox -) 110 mg SQ Q12H [facility] Last Admin: 11/02/19 05:51 Dose: 110 mg Documented by: Famotidine (Pepcid -) 20 mg PO DAILY [facility] Last Admin: 11/01/19 09:40 Dose: 20 mg Documented by: Insulin Aspart (Novolog Vial Sliding Scale -) 1 vial SQ TIDAC [facility]; Protocol Last Admin: 11/02/19 06:16 Dose: 2 units Documented by: Losartan Potassium (Cozaar -) 100 mg PO DAILY [facility] Last Admin: 11/01/19 09:39 Dose: 100 mg Documented by: Metoprolol Succinate (Toprol Xl -) 25 mg PO DAILY [facility] Last Admin: 11/01/19 09:40 Dose: 25 mg Documented by: Oxycodone HCl (Roxicodone -) 5 mg PO Q6H PRN PRN Reason: PAIN LEVEL 4-10 Pancrelipase (Creon Dr 6,000 Units Capsule) 2 cap PO TIDCM [facility] Last Admin: 11/01/19 17:09 Dose: 2 cap Documented by: Pantoprazole Sodium (Protonix -) 40 mg PO DAILY [facility] Last Admin: 11/01/19 09:40 Dose: 40 mg Documented by: Rosuvastatin Calcium (Crestor -) 5 mg PO DAILY [facility] Last Admin: 11/01/19 09:40 Dose: 5 mg Documented by: Simethicone (Mylicon -) 80 mg PO QID [facility] Last Admin: 11/01/19 21:33 Dose: 80 mg Documented by: Solifenacin (Vesicare -) 5 mg PO DAILY [facility] Last Admin: 11/01/19 10:11 Dose: Not Given Documented by: - Objective Vital Signs: Vital Signs Temperature 97.8 F 11/02/19 06:00 Pulse Rate 84 11/02/19 06:00 Respiratory Rate 20 11/02/19 06:00 Blood Pressure 118/76 11/02/19 06:00 O2 Sat by Pulse Oximetry (%) 99 11/01/19 21:00 General: Young female, looks exhausted, not in distress HEENT; mucous membranes moist, no anemia, no jaundice, PERRLA, no nystagmus Neck: No JVD, supple, no bruit, thyroid palpably normal, normal carotid pulsations. Chest: Nontender,bilateral basal rales. CVS: S1-S2 regular/ no murmur/gallop/rub Abdomen: Nondistended, soft, bowel sounds present. Extremities: No edema., No calf tenderness, pulses present [employer] [place]: AO X3 , no gross motor sensory deficit Labs: CBC, BMP 11/02/19 06:13 11/02/19 06:13 INR, PTT INR 1.08 (0.83-1.09) 10/31/19 12:20 COVID 19 -ve Problem List - Problems (1) SOB (shortness of breath) Assessment/Plan: Work-up shows bilateral extensive PE experience outpatient acute onset shortness of breath, also right lower extremity DVT on full dose anticoagulation, will discuss with ID if patient needs call with rule out. Code(s): R06.02 - SHORTNESS OF BREATH (2) Elevated troponin Assessment/Plan: Most likely due to RV strain secondary to bilateral extensive PE, no acute EKG we will continue metoprolol, Crestor and aspirin follow-up cardiology recomme ndations. Follow-up echocardiogram once COVID is R?O Code(s): R79.89 - OTHER SPECIFIED ABNORMAL FINDINGS OF BLOOD CHEMISTRY (3) Hypertension Assessment/Plan: Well-controlled continue all home medications Code(s): I10 - ESSENTIAL (PRIMARY) HYPERTENSION (4) Hyperlipidemia Assessment/Plan: Continue Crestor Code(s): E78.5 - HYPERLIPIDEMIA, UNSPECIFIED (5) CA of prostate Assessment/Plan: Completed treatment 2017 at present cancer free Code(s): C61 - MALIGNANT NEOPLASM OF PROSTATE (6) T2DM (type 2 diabetes mellitus) Assessment/Plan: Hold p.o. meds metformin, follow-up hemoglobin A1c lipid panel and correction dose lispro pre-meal. Code(s): E11.9 - TYPE 2 DIABETES MELLITUS WITHOUT COMPLICATIONS (7) EDMUND (acute kidney injury) Assessment/Plan: Improving. DC IV hydration follow-up BMP encourage p.o. hydration Code(s): N17.9 - ACUTE KIDNEY FAILURE, UNSPECIFIED
[2019-11-02] MEDS: ROSUVASTATIN CA 5 MG TABLET (FP) PO SCH (09:48)
[2019-11-02] MEDS: SIMETHICONE 80 MG TAB.CHEW (FP) PO SCH ×2 (09:48→13:18)
[2019-11-02] MEDS: LOSARTAN POTASSIUM 50 MG TABLET (FP) PO SCH (09:48)
[2019-11-02] MEDS: amLODIPine BESYLATE 5 MG TABLET (FP) PO SCH (09:48)
[2019-11-02] MEDS: ASPIRIN COATED 81 MG TABLET.EC PO SCH (09:48)
[2019-11-02] MEDS: PANTOPRAZOLE 40 MG TABLET PO SCH (09:48)
[2019-11-02] MEDS: FAMOTIDINE 20 MG TABLET PO SCH (09:48)
[2019-11-02] MEDS: metoPROLOL SUCCINATE 25 MG TAB.SR.24H (FP) PO SCH (09:48)
--- NOTE | 2019-11-02 10:20 | EKG ---
Test Reason : Blood Pressure : / mmHG Vent. Rate : 103 BPM Atrial Rate : 103 BPM P-R Int : 202 ms QRS Dur : 092 ms QT Int : 336 ms P-R-T Axes : 037 -29 071 degrees QTc Int : 440 ms SINUS TACHYCARDIA POSSIBLE INFERIOR INFARCT (CITED ON OR BEFORE 31-OCT-2019) ABNORMAL ECG WHEN COMPARED WITH ECG OF 31-OCT-2019 12:04, NO SIGNIFICANT CHANGE WAS FOUND Confirmed by DAVEY CARTWRIGHT, MAXIMILIAN ([id number]) on 11/02/2019 10:19:54 AM Referred By: Confirmed By:MAXIMILIAN MARISCAL MD
[2019-11-02] MEDS: SOLIFENACIN SUCCINATE 5 MG TAB PO SCH (11:26)
--- NOTE | 2019-11-02 11:53 | DS ---
Physical Examination Vital Signs: Vital Signs Temperature 98.6 F 11/02/19 10:00 Pulse Rate 87 11/02/19 10:00 Respiratory Rate 20 11/02/19 10:00 Blood Pressure 130/70 11/02/19 10:00 O2 Sat by Pulse Oximetry (%) 99 11/02/19 10:21 General: Elderly man, feels improved comfortable, not in distress HEENT; mucous membranes moist, no anemia, no jaundice, PERRLA, no nystagmus Neck: No JVD, supple, no bruit, thyroid palpably normal, normal carotid pulsations. Chest: Nontender, clear to auscultation bilaterally CVS: S1-S2 regular no murmur/gallop/rub Abdomen: Nondistended, soft, bowel sounds present. 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 , no gross motor sensory deficit Labs: CBC, BMP 11/02/19 06:13 11/02/19 06:13 CT chest: Bilateral lower lobe and upper lobe DVT Lower extremity DVT: Right popliteal vein and femoral vein DVT Chest x-ray: No acute changes COVID 19 negative Influenza a and B: Negative RSV: Negative Discharge Summary Problems reviewed: Yes Reason For Visit: SOB/ELIVATED TROPONIN LEVEL/ACS Current Active Problems EDMUND (acute kidney injury) (Acute) DVT (deep venous thrombosis) (Acute) Elevated troponin (Acute) Hyperlipidemia (Acute) Hypertension (Acute) Hypomagnesemia (Acute) Pulmonary embolism (Acute) SOB (shortness of breath) (Acute) Hospital Course: 74 years old man lives alone at home history of hypertension, type 2 diabetes mellitus, hypercholesterolemia, last nuclear stress test was negative in 2017 follow-up at [place] [facility], for the present with complaint of sudden onset shortness of breath that 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 he leaned forward to get some water from the sink all of a sudden experienced shortness of breath that lasted 10 minutes, severe in intensity , resolved with rest, patient has been having dyspnea on exertion and chest heaviness so came to ED for evaluation, considering COVID 19 endemic area, patient was put on airborne isolation to rule COVID 19 infection that came negative, patient is influenza a and B and RSV negative, in the ED left shows mild elevation of troponin I no acute ST changes but some sinus tachycardia, ABG shows mild hypoxia, lower extremity Doppler shows DVT right lower extremity and CT chest with PE protocol shows bilateral lower lobe and upper lobe PE, patient was put on anticoagulation with Lovenox, symptoms greatly improved evaluated by pulmonary, cardiology and ID, patient will be discharged on p.o. apixaban to follow-up with his sandstone splitter and primary care provider, patient has follow-up with territory sales consultant for chronic iron deficiency anemia underwent capsule endoscopy and colonoscopy in the past, I asked him to follow-up with territory sales consultant to rule out age-appropriate malignancy work-up to rule out provoked pulmonary embolism patient understood and agreed to follow-up with his territory sales consultant , I also discussed case with patient primary care provider Dr. Erwin is aware of complete test history. As per cardiology consult mild elevation of troponin is attributed due to acute pulmonary embolism,. Time spent: 40 minutes Condition: Improved - Instructions Diet, Activity, Other Instructions: Continue low-salt low-cholesterol diabetic diet. You have bloating your right leg and your both lung, for that you need blood thinner at least for 6-month, we are discharging you on apixaban 10 mg twice daily for 7 days: After that you visit your primary care Dr. Erwin and sandstone splitter Dr. Malini Grimm for long-term anticoagulation management, while you are in blood thinner you have high risk of bleeding please contact your primary care provider or emergency department if you notice any bleeding from nose, blood mixed urine, dark-colored stool or any unexpected joint swelling. Considering your age you need further work-up for the cause of deep vein thrombosis you need to follow-up with your territory sales consultant at [facility] and your primary care is aware and diarrhea about it. Referrals: Scott Erwin MD [Primary Care Provider] - 1 Week Alfa Nayak MD [Staff Physician] - 1 Week - Home Medications Comprehensive Discharge Medication List: Ambulatory Orders Esomeprazole Mag Trihydrate [Nexium] 40 mg PO DAILY 07/12/14 Lipase/Protease/Amylase [Miriam Dhillon 24,000 Units Capsule] 1 each PO TID 07/12/14 Rosuvastatin Calcium [Crestor] 5 mg PO DAILY 07/12/14 Solifenacin Succinate [Vesicare] 5 mg PO DAILY 07/12/14 metFORMIN HCL [Glucophage -] 500 mg PO DAILY 07/12/14 Metoprolol Succinate [Toprol XL -] 25 mg PO DAILY #30 tab.sr.24h 07/13/14 Amlodipine Besylate [Norvasc -] 10 mg PO DAILY 04/17/18 Aspirin [Ecotrin] 81 mg PO DAILY 04/17/18 Famotidine [Pepcid] 20 mg PO DAILY 04/17/18 Gas-X 1 tablet PO QID 04/17/18 Losartan Potassium [Cozaar] 100 mg PO DAILY 04/17/18 Levofloxacin [Levaquin] 500 mg PO DAILY #8 tablet 04/20/18 oxyCODONE HCL [Roxicodone -] 5 mg PO Q6H PRN #20 tablet MDD 20mg 04/20/18 Apixaban [Eliquis -] 10 mg PO BID 7 Days #14 tablet 11/02/19
--- NOTE | 2019-11-02 13:18 | PN ---
Progress Note, Physician History of Present Illness: pulmonary alert,comfortable,-sob,-cp - Current Medication List Current Medications: Active Medications Acetaminophen (Tylenol -) 650 mg PO Q6H PRN PRN Reason: FEVER Albuterol/Ipratropium (Duoneb -) 1 amp NEB Q6H PRN PRN Reason: SHORTNESS OF BREATH Amlodipine Besylate (Norvasc -) 10 mg PO DAILY [facility] Last Admin: 11/02/19 09:48 Dose: 10 mg Documented by: Apixaban (Eliquis -) 10 mg PO BID [facility] Aspirin (Ecotrin -) 81 mg PO DAILY [facility] Last Admin: 11/02/19 09:48 Dose: 81 mg Documented by: Famotidine (Pepcid -) 20 mg PO DAILY [facility] Last Admin: 11/02/19 09:48 Dose: 20 mg Documented by: Insulin Aspart (Novolog Vial Sliding Scale -) 1 vial SQ TIDAC [facility]; Protocol Last Admin: 11/02/19 11:26 Dose: 2 units Documented by: Losartan Potassium (Cozaar -) 100 mg PO DAILY [facility] Last Admin: 11/02/19 09:48 Dose: 100 mg Documented by: Metoprolol Succinate (Toprol Xl -) 25 mg PO DAILY [facility] Last Admin: 11/02/19 09:48 Dose: 25 mg Documented by: Oxycodone HCl (Roxicodone -) 5 mg PO Q6H PRN PRN Reason: PAIN LEVEL 4-10 Pancrelipase (Creon Dr 6,000 Units Capsule) 2 cap PO TIDCM [facility] Last Admin: 11/02/19 12:12 Dose: 2 cap Documented by: Pantoprazole Sodium (Protonix -) 40 mg PO DAILY [facility] Last Admin: 11/02/19 09:48 Dose: 40 mg Documented by: Rosuvastatin Calcium (Crestor -) 5 mg PO DAILY [facility] Last Admin: 11/02/19 09:48 Dose: 5 mg Documented by: Simethicone (Mylicon -) 80 mg PO QID [facility] Last Admin: 11/02/19 09:48 Dose: 80 mg Documented by: Solifenacin (Vesicare -) 5 mg PO DAILY [facility] Last Admin: 11/02/19 11:26 Dose: Not Given Documented by: - Objective Vital Signs: Vital Signs Temperature 98.6 F 03/19/20 10:00 Pulse Rate 87 11/02/19 10:00 Respiratory Rate 20 11/02/19 10:00 Blood Pressure 130/70 11/02/19 10:00 O2 Sat by Pulse Oximetry (%) 99 11/02/19 10:21 Constitutional: Yes: Well Nourished, Calm Eyes: Yes: WNL HENT: Yes: WNL Neck: Yes: WNL Cardiovascular: Yes: Regular Rate and Rhythm, S1, S2 Respiratory: Yes: CTA Bilaterally Gastrointestinal: Yes: Normal Bowel Sounds, Soft Extremities: Yes: WNL Edema: No Labs: CBC, BMP 11/02/19 06:13 11/02/19 06:13 INR, PTT INR 1.08 (0.83-1.09) 10/31/19 12:20 Problem List - Problems (1) Pulmonary embolism Code(s): I26.99 - OTHER PULMONARY EMBOLISM WITHOUT ACUTE COR PULMONALE (2) EDMUND (acute kidney injury) Code(s): N17.9 - ACUTE KIDNEY FAILURE, UNSPECIFIED (3) Elevated troponin Code(s): R79.89 - OTHER SPECIFIED ABNORMAL FINDINGS OF BLOOD CHEMISTRY (4) Hyperlipidemia Code(s): E78.5 - HYPERLIPIDEMIA, UNSPECIFIED (5) Hypertension Code(s): I10 - ESSENTIAL (PRIMARY) HYPERTENSION (6) SOB (shortness of breath) Code(s): R06.02 - SHORTNESS OF BREATH (7) CA of prostate Code(s): C61 - MALIGNANT NEOPLASM OF PROSTATE (8) Hypertension Code(s): I10 - ESSENTIAL (PRIMARY) HYPERTENSION (9) T2DM (type 2 diabetes mellitus) Code(s): E11.9 - TYPE 2 DIABETES MELLITUS WITHOUT COMPLICATIONS (10) DVT (deep venous thrombosis) Code(s): I82.409 - ACUTE EMBOLISM AND THOMBOS UNSP DEEP VN UNSP LOWER EXTREMITY Assessment/Plan IMP DYSPNEA EXTENSIVE BILATERAL PULMONARY EMBOLI LIKELY PROVOKED SEDENTARY LIFESTYLE RLE DVT DM PROSTATE CA S/P RADIATION SEED IMPLANTS ANEMIA HLD EDMUND LOW CLINICAL SUSPICION FOR COVID-19 PLAN ELIQUIS O2 W/U FOR HYPERCOAGULABLE STATE OUTPATIENT AGE APPROPRIATE CANCER SCREENING OUTPATIENT COVID-19 SEROLOGY NEGATIVE MONITOR LYTES,REAL FUNCTION DR GALICIA Problem List - Problems (1) Pulmonary embolism Code(s): I26.99 - OTHER PULMONARY EMBOLISM WITHOUT ACUTE COR PULMONALE (2) EDMUND (acute kidney injury) Code(s): N17.9 - ACUTE KIDNEY FAILURE, UNSPECIFIED (3) Elevated troponin Code(s): R79.89 - OTHER SPECIFIED ABNORMAL FINDINGS OF BLOOD CHEMISTRY (4) Hyperlipidemia Code(s): E78.5 - HYPERLIPIDEMIA, UNSPECIFIED (5) Hypertension Code(s): I10 - ESSENTIAL (PRIMARY) HYPERTENSION (6) SOB (shortness of breath) Code(s): R06.02 - SHORTNESS OF BREATH (7) CA of prostate Code(s): C61 - MALIGNANT NEOPLASM OF PROSTATE (8) Hypertension Code(s): I10 - ESSENTIAL (PRIMARY) HYPERTENSION (9) T2DM (type 2 diabetes mellitus) Code(s): E11.9 - TYPE 2 DIABETES MELLITUS WITHOUT COMPLICATIONS (10) DVT (deep venous thrombosis) Code(s): I82.409 - ACUTE EMBOLISM AND THOMBOS UNSP DEEP VN UNSP LOWER EXTREMITY
--- NOTE | 2019-11-02 13:29 | ECHO ---
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7 cm/sec TR max P.7 mmHg PA V2 max: 153.4 cm/sec Med Peak E' Philipp: 4.5 cm/sec PA max P.4 mmHg Med E/e': 16.0 Lat Peak E' Philipp: 7.4 cm/sec Lat E/e': 9.6 PI Vmax: 188.7 cm/sec Procedure A complete two-dimensional transthoracic echocardiogram was performed (2D, M-mode, Doppler and color flow Doppler). Left Ventricle The left ventricular size, thickness and function are normal. The left ventricular ejection fraction is normal. Ejection Fraction = 60-65%. The left ventricular wall motion is normal. Right Ventricle The right ventricle is normal in size and function. Atria Normal left and right atrial size and function. Mitral Valve There is no mitral regurgitation noted. Tricuspid Valve There is trace tricuspid regurgitation. Right ventricular systolic pressure is elevated at 30-40mmHg. Aortic Valve The aortic valve is trileaflet. No hemodynamically significant valvular aortic stenosis. No aortic regurgitation is present. Pulmonic Valve There is no pulmonic valvular regurgitation. Great Vessels The aortic root is normal size. Pericardium/Pleura There is no pericardial effusion. Interpretation Summary The left ventricular size, thickness and function are normal The right ventricle is normal in size and function. There is trace tricuspid regurgitation. Right ventricular systolic pressure is elevated at 30-40mmHg. MD Alfa Nayak 11/02/2019 01:29 PM
--- NOTE | 2019-11-02 14:23 | PN ---
Progress Note, Physician History of Present Illness: stable no complaints covid negative - Current Medication List Current Medications: Active Medications Acetaminophen (Tylenol -) 650 mg PO Q6H PRN PRN Reason: FEVER Albuterol/Ipratropium (Duoneb -) 1 amp NEB Q6H PRN PRN Reason: SHORTNESS OF BREATH Amlodipine Besylate (Norvasc -) 10 mg PO DAILY [facility] Last Admin: 11/02/19 09:48 Dose: 10 mg Documented by: Apixaban (Eliquis -) 10 mg PO BID [facility] Aspirin (Ecotrin -) 81 mg PO DAILY [facility] Last Admin: 11/02/19 09:48 Dose: 81 mg Documented by: Famotidine (Pepcid -) 20 mg PO DAILY [facility] Last Admin: 11/02/19 09:48 Dose: 20 mg Documented by: Insulin Aspart (Novolog Vial Sliding Scale -) 1 vial SQ TIDAC [facility]; Protocol Last Admin: 11/02/19 11:26 Dose: 2 units Documented by: Losartan Potassium (Cozaar -) 100 mg PO DAILY [facility] Last Admin: 11/02/19 09:48 Dose: 100 mg Documented by: Metoprolol Succinate (Toprol Xl -) 25 mg PO DAILY [facility] Last Admin: 11/02/19 09:48 Dose: 25 mg Documented by: Oxycodone HCl (Roxicodone -) 5 mg PO Q6H PRN PRN Reason: PAIN LEVEL 4-10 Pancrelipase (Creon Dr 6,000 Units Capsule) 2 cap PO TIDCM [facility] Last Admin: 11/02/19 12:12 Dose: 2 cap Documented by: Pantoprazole Sodium (Protonix -) 40 mg PO DAILY [facility] Last Admin: 11/02/19 09:48 Dose: 40 mg Documented by: Rosuvastatin Calcium (Crestor -) 5 mg PO DAILY [facility] Last Admin: 11/02/19 09:48 Dose: 5 mg Documented by: Simethicone (Mylicon -) 80 mg PO QID [facility] Last Admin: 11/02/19 13:18 Dose: 80 mg Documented by: Solifenacin (Vesicare -) 5 mg PO DAILY [facility] Last Admin: 11/02/19 11:26 Dose: Not Given Documented by: - Objective Vital Signs: Vital Signs Temperature 98.6 F 11/02/19 10:00 Pulse Rate 87 11/02/19 10:00 Respiratory Rate 20 11/02/19 10:00 Blood Pressure 130/70 11/02/19 10:00 O2 Sat by Pulse Oximetry (%) 99 11/02/19 10:21 Constitutional: Yes: No Distress, Calm Cardiovascular: Yes: S1, S2 Respiratory: Yes: Regular, CTA Bilaterally Gastrointestinal: Yes: Normal Bowel Sounds, Soft Musculoskeletal: Yes: WNL Extremities: Yes: WNL Neurological: Yes: Alert, Oriented Psychiatric: Yes: Alert, Oriented Labs: CBC, BMP 11/02/19 06:13 11/02/19 06:13 INR, PTT INR 1.08 (0.83-1.09) 10/31/19 12:20 Assessment/Plan Problem List - Problems (1) SOB (shortness of breath) Code(s): R06.02 - SHORTNESS OF BREATH (2) Elevated troponin Code(s): R79.89 - OTHER SPECIFIED ABNORMAL FINDINGS OF BLOOD CHEMISTRY (3) Hypertension Code(s): I10 - ESSENTIAL (PRIMARY) HYPERTENSION (4) Hyperlipidemia Code(s): E78.5 - HYPERLIPIDEMIA, UNSPECIFIED (5) CA of prostate Code(s): C61 - MALIGNANT NEOPLASM OF PROSTATE (6) T2DM (type 2 diabetes mellitus) Code(s): E11.9 - TYPE 2 DIABETES MELLITUS WITHOUT COMPLICATIONS (7) Hypomagnesemia Code(s): E83.42 - HYPOMAGNESEMIA (8) EDMUND (acute kidney injury) Problems reviewed: Yes Code(s): N17.9 - ACUTE KIDNEY FAILURE, UNSPECIFIED plan continue current mgmt no abx coivd negative rest as per the team
[2019-11-02 14:37] VITALS: BP 130/82; TEMP 98.2
[2019-11-02 14:42] VITALS: PULSE 107
[2019-11-02] MEDS ORDERED: APIXABAN 5 MG TABLET PO SCH (22:00)
== END 2019-11-02 16:39 | disposition home or self-care (01) | DRG 176 ==
LOC: JER 11:02 → UNDOADMOB 13:57 → JERBED 13:57 → INTOOBSV 13:57 → UNDOADMIN 13:57 → JERBED 14:17 → OBSVTOIN 14:17 → J4W 11-01 00:03
PROVIDERS: ADMIT Internal Medicine Geriatric Medicine; ATTEND Internal Medicine
DX: I26.99 Other pulmonary embolism without acute cor pulmonale (principal); N17.9 Acute kidney failure, unspecified; I82.4Z1 Acute embolism and thrombosis of unspecified deep veins of right distal lower extremity; E78.5 Hyperlipidemia, unspecified; D50.0 Iron deficiency anemia secondary to blood loss (chronic); K21.9 Gastro-esophageal reflux disease without esophagitis; I25.10 Atherosclerotic heart disease of native coronary artery without angina pectoris; I48.0 Paroxysmal atrial fibrillation; I10 Essential (primary) hypertension; R00.0 Tachycardia, unspecified; R79.89 Other specified abnormal findings of blood chemistry; E83.42 Hypomagnesemia; D72.829 Elevated white blood cell count, unspecified; Z85.46 Personal history of malignant neoplasm of prostate
CPT/HCPCS: 36415; 36600; 71045-TC-FY; 71275-TC; 80048; 80053; 80061; 81003; 82375; 82550; 82803; 82962; 83036; 83050; 83721; 83735; 83880; 84443; 84484; 85025; 85379; 85610; 85730; 87086; 87186; 87804; 87807; 93005; 93010; 93306-TC; 93970-TC; 94761; 99285-25; J7030; Q9967; U0001

== ENCOUNTER 2023-07-10 04:02 | Emergency (ER) | payer OTHER ==
[2023-07-10 04:11] VITALS: BP 145/75; RESP 22; TEMP 98.3; BMI 29.1
[2023-07-10 05:50] LABS: BASO % 1.2 % (0-2.0); EOS % 1.2 % (0-4.5); HEMATOCRIT 41.2 % (35.4-49); HEMOGLOBIN 13.5 GM/dL (11.7-16.9); LYMPH % 12.4 % (8-40); MCH 29.4 pg (25.7-33.7); MCHC 32.7 g/dl (32.0-35.9); MEAN CELL VOLUME 89.8 fl (80-96); MEAN PLT VOLUME 7.3 fl (7.5-11.1); MONO % 6.8 % (3.8-10.2); NEUT % 78.4 % (42.8-82.8); PLATELET COUNT 264 10^3/uL (134-434); RBC 4.59 M/mm3 (4.00-5.60); RDW 13.2 % (11.9-15.9)
[2023-07-10 06:10] LABS: EPI CELLS 10 /uL (0-25.1); HYALINE CASTS 0 /uL (0-3.1); PH,URINE 6.5 (5.0-8.0); URINE APPEARANCE CLEAR; URINE BACTERIA 10 /uL (0-1359); URINE BILIRUBIN NEGATIVE (NEGATIVE); URINE COLOR YELLOW; URINE GLUCOSE (UA) TRACE (NEGATIVE); URINE KETONE NEGATIVE (NEGATIVE); URINE LEUK ESTERASE NEGATIVE (NEGATIVE); URINE NITRITE NEGATIVE (NEGATIVE); URINE PROTEIN 3+ (NEGATIVE); URINE RBC 462 /uL (0-23.9); URINE WBC 7 /uL (0-25.8)
[2023-07-10 06:48] LABS: POTASSIUM 3.4 mmol/L (3.5-5.1)
[2023-07-10 06:51] LABS: CALCIUM 9.4 mg/dL (8.5-10.1)
[2023-07-10 06:52] LABS: ALBUMIN 3.5 g/dl (3.4-5.0); BLOOD UREA NITROGEN 22.1 mg/dL (7-18)
[2023-07-10 06:55] LABS: CREATININE 1.4 mg/dL (0.55-1.3)
[2023-07-10 06:57] LABS: TOT PROT 7.1 g/dl (6.4-8.2)
[2023-07-10 07:01] LABS: BILIRUBIN,TOTAL 0.8 mg/dL (0.2-1)
[2023-07-10 08:12] VITALS: PULSE 82
== END 2023-07-10 09:39 | disposition home or self-care (01) ==
LOC: JER 04:02
DX: R33.9 Retention of urine, unspecified (principal); U07.1 COVID-19
CPT/HCPCS: 0241U-QW; 36415; 71045-TC-FY; 80053; 81003; 85025; 87086; 93005; 93010; 99285-25